=== PATIENT | male | born 1950 | race Caucasian/White ===

== ENCOUNTER 2017-02-19 15:35 | Emergency (ER) | payer MEDICAID, MEDICARE ==
[~2017-02-19] VITALS: Ht 170.2 cm; Wt 56.7 kg
[~2017-02-19 15:35] MED LIST: ALPR.5T; ALPR1T PO; ESCI10TA48 PO; ESCI5TAB; METH10TA2 PO; METHADONE PO; MULT-963 PO; QUET300T3 PO; SULF1TAB35 PO; TAPE100T PO; TAPE75TA PO; [UNRECOGNIZED DRUG - CODE] PO
--- NOTE | 2017-02-19 15:45 | ED Fall/Injury ---
General Stated Complaint: FALL Source: patient, EMS Exam Limitations: no limitations History of Present Illness Time seen by provider: 15:44 Initial Comments To ER per EMS from home with right hip pain. This began after a fall landing on the right hip 3 days ago. He's been unable to walk since then and has been crawling. History of right hip replacement 2 with [facility]. Occurred: other Severity: moderate Injuries/Pain Location: pelvis, lower extremity Context: slipped Allergies and Home Medications Allergies Coded Allergies: NKANo Known Allergies (Unverified Allergy, Mild, 02/21/09) Home Medications Alprazolam 1 Mg Tablet, 1 MG PO TID PRN for ANXIETY, (Reported) NEEDED FOR ANXIETY Methadone Hcl 10 Mg Tablet, 120 MG PO TID PRN for PAIN, (Reported) NEEDED FOR PAIN Multivitamin 1 Each Tablet, 1 TAB PO DAILY, (Reported) Quetiapine Fumarate 300 Mg Tab.sr.24h, 300 MG PO HS, (Reported) Sulfamethoxazole/Trimethoprim 1 Each Tablet, 1 EACH PO BID, #14 Prescribed by: JUAN F TORRES on 11/17/15 1527 Constitutional: see HPI Eyes: No Symptoms Reported Ears, Nose, Mouth, Throat: no symptoms reported Respiratory: no symptoms reported Cardiovascular: no symptoms reported Genitourinary: no symptoms reported Musculoskeletal: see HPI Skin: no symptoms reported Psychiatric/Neurological: No Symptoms Reported Past Dcfhivt-Jwosmn-Chkzzv Hx Immunizations Up To Date Tetanus Booster (TDap): Unknown PED Vaccines UTD: Yes Date of Influenza Vaccine: Oct 10, 2015 Seasonal Allergies Seasonal Allergies: No Surgeries HX Surgeries: Yes (Rt hip replaced 2014) Respiratory Hx Respiratory Disorders: Yes Respiratory Disorders: COPD Cardiovascular Hx Cardiac Disorders: No Neurological Hx Neurological Disorders: No Reproductive System Hx Reproductive Disorders: No Genitourinary Hx Genitourinary Disorders: No Genitourinary Disorders: Renal Failure Gastrointestinal Hx Gastrointestinal Disorders: No Gastrointestinal Disorders: Pancreatitis Musculoskeletal Hx Musculoskeletal Disorders: Yes (AVASCULAR NECROSIS, HIP REPLACEMENT WITH MULTIPLE DISLOCATIONS) Endocrine Hx Endocrine Disorders: No HEENT HX ENT Disorders: No Cancer Hx Cancer: No Psychosocial Hx Psychiatric Problems: Yes Behavioral Health Disorders: Anxiety Integumentary HX Skin/Integumentary Disorder: No Blood Transfusions Hx Blood Disorders: No Adverse Reaction to a Blood Tr: No Family Medical History Significant Family History: No Pertinent Family Hx Physical Exam Vital Signs Capillary Refill : General Appearance: WD/WN, no apparent distress HEENT: PERRL/EOMI, normal ENT inspection Neck: non-tender, full range of motion Respiratory: normal breath sounds, no respiratory distress, no accessory muscle use Gastrointestinal: normal bowel sounds, non tender, soft Extremities: other (pain to the right hip anteriorly and laterally.) Neurologic/Psychiatric: alert, normal mood/affect, oriented x 3 Skin: normal color, warm/dry Rylie Coma Score Best Eye Response: (4) Open Spontaneously Best Verbal Response: (5) Oriented Best Motor Response: (6) Obeys Commands Rylie Total: 15 Patient Education: Explained Benefits Breath Sounds per Auscultation: Clear Heart Sounds per Auscultation: Regular Airway Exam: Mouth opens >2 fingers, Neck Full Range of Motion, Visulation of Uvula Sedation Adminstration Time: 2034 Re-examination Time: 2099 Progress/Results/Core Measures Results/Orders My Orders Orders - JUAN F TORRES APRN Pelvis (02/19/17 15:43) Hip, Right, 2 Views (02/19/17 15:43) Cbc With Automated Diff (02/19/17 16:26) Ketorolac Injection (Toradol Injection) (02/19/17 16:45) Departure Communication Progress Notes I did discuss the case with Dr. Taveras who is on-call for orthopedics today. He recommends a walker and weightbearing as tolerated. Patient is early on methadone for pain control. Impression Impression: Primary Impression: Nondisplaced pubic rami fracture Disposition: 01 HOME, SELF-CARE Condition: Stable Departure-Patient Inst. Decision time for Depature: 16:26 Referrals: SANDHYA JARVIS MD (PCP/Family) Primary Care Physician Patient Instructions: Pelvic Fracture Add. Discharge Instructions: 1. Weightbearing as tolerated 2. Follow-up with your doctor later this week for recheck 3. JUAN F TORRES APRN Feb 19, 2017 15:45
--- NOTE | 2017-02-19 16:20 | Diagnostic Imaging Report ---
INDICATION: Right hip pain. FINDINGS: Two views of the right hip show postop changes from right hip arthroplasty. Prosthesis is in good position. Alignment is normal. There is no evidence of dislocation. There are fractures of the right superior and inferior ischiopubic rami which are new since 12/21/2014. IMPRESSION: Nondisplaced right ischiopubic rami fractures. Dictated by: Dictated on workstation # [id number]
--- NOTE | 2017-02-19 16:21 | Diagnostic Imaging Report ---
EXAMINATION: AP view of the pelvis. INDICATION: Fall. FINDINGS: There are mildly displaced fractures of the superior and inferior pubic rami on the right side. The right hip replacement appears to be in good position. The left hip demonstrates degenerative changes with prominent subchondral sclerosis in the left femoral head may relate to avascular necrosis. No subchondral collapse, however, is seen. The SI joints demonstrate prominent degenerative changes and suggestion of fused upper aspect of the joint on both sides. IMPRESSION: Mildly displaced fractures of the superior and inferior right pubic rami. Dictated by: Dictated on workstation # [id number]
[2017-02-19] MEDS ORDERED: KETOROLAC 60 MG/2 ML VIAL IM ONE (16:45)
[2017-02-19 18:28] VITALS: BP 102/72
== END 2017-02-19 17:02 | disposition home or self-care (01) ==
LOC: EDUNIT# 15:35 → ER 15:36
DX: S32.511A Fracture of superior rim of right pubis, initial encounter for closed fracture (principal); Z96.642 Presence of left artificial hip joint; R44.9 Unspecified symptoms and signs involving general sensations and perceptions; W19.XXXA Unspecified fall, initial encounter; Y99.8 Other external cause status
CPT/HCPCS: 72170; 73502; 99283

== ENCOUNTER 2017-07-16 16:06 | Emergency (ER) | payer MEDICARE ==
[~2017-07-16] VITALS: Ht 170.2 cm; Wt 59.0 kg
[2017-07-16 16:06] VITALS: BP 140/71
--- OUTSIDE RECORDS SUMMARY | 2017-07-16 16:10 | XMS REPORT | Clinical Summary ---
Author Author [facility] Organization [facility] Address Unknown Phone Unavailable Care Team Providers Care Gum Puller Name Role Phone PCP Unavailable Source Comments Some departments are not documenting in the electronic medical record. If you do not see the information that you expected, contact Release of Information in the Health Information Management department at [phone] for further assistance in locating additional records.[facility] Allergies No Known Allergies Current Medications Prescription Sig. Disp. Refills Start End Date Status Date methadone (DOLOPHINE; Take 120 mg by mouth Active METHADOSE) 10 mg tablet every 8 hours alendronate (FOSAMAX) 10 Take 70 mg by mouth daily Active mg tablet before breakfast. ALPRAZolam (XANAX) 1 mg Take 1 mg by mouth three Active tablet times daily. MULTIVITAMINS WITH Take 1 Tab by mouth Active FLUORIDE (MULTI-VITAMIN daily. PO) QUEtiapine (SEROQUEL) 300 Take 600 mg by mouth at Active mg tablet bedtime daily. 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 08/02/2013 Closed posterior dislocation of hip (HCC) Family History Medical History Relation Name Comments Bleeding Disorders Other Relation Name Status Comments Other Social History Tobacco Use Types Packs/Day Years Used Date Passive Smoke Exposure - 0.25 Never Smoker Smokeless Tobacco: Never Used Tobacco Cessation: Counseling Given: Yes Comments: Previously smoked 1PPD for years Alcohol Use Drinks/Week oz/Week Comments No Sex Assigned at Date Recorded Not on file Last Filed Vital Signs Vital Sign Reading Time Taken Blood Pressure 105/50 02/15/2014 6:33 AM CDT Pulse 81 02/15/2014 6:33 AM CDT Temperature 36.8 C (98.2 F) 02/15/2014 6:33 AM CDT Respiratory Rate - - Oxygen Saturation 97% 02/15/2014 6:33 AM CDT Inhaled Oxygen - - Concentration Weight 60.8 kg (134 lb) 02/09/2014 1:01 PM CDT Height 177.8 cm (5' 10") 02/09/2014 1:01 PM CDT Body Mass Index 19.23 02/09/2014 1:01 PM CDT Plan of Treatment Health Maintenance Due Date Last Done Comments HEPATITIS C SCREENING 1950 PHYSICAL (COMPREHENSIVE) 1957 EXAM PERTUSSIS VACCINE 1961 TETANUS VACCINE 1967 COLORECTAL CANCER 2000 SCREENING SHINGLES VACCINE 2010 PREVNAR/PNEUMOVAX (#1) 2015 INFLUENZA VACCINE 07/11/2017 Results Not on filefrom Last 3 Months
[2017-07-16] MEDS ORDERED: DIPH1TAB25 PO (16:26)
[2017-07-16] MEDS ORDERED: CITA20TA12 PO (16:27)
--- NOTE | 2017-07-16 16:36 | ED Psychosocial ---
General Chief Complaint: Overdose Stated Complaint: OVERDOSE Nursing Triage Note: ARRIVED VIA AMBULANCE FROM HOME PT STATES HE TOOK APPX 15 10MG TABS OF HIS METHADONE AND UNKNONWN AMOUNT OF XANAX. XANAX BOTTLE IS EMPTY AND IS MISSING ABOUT 1/2 BOTTLE THAT SHOULD BE THERE. STATES HE TOOK THE MEDICINE TO HELP HIM FIGURE THINGS OUT. AT THE TIME HE THOUGHT HE WANTED TO HARM HIMSELF ET NOW HE DOES NOT WANT TO HARM HIMSELF HE JUST WANTS SOMEONE TO TALK TO. Source: patient, EMS Exam Limitations: no limitations History of Present Illness Time seen by provider: 16:27 Initial Comments Patient presents to ER by EMS with a chief complaint that he felt poorly and tired today and wanted to rest because he had recently lost to cats one of which she had a witnessed diuretic and front of him in the street. This had them very distraught and upset and so he took his normal complement of 15 tablets of methadone as well as an unknown amount of Xanax he thinks is probably just a little more than what he typically takes in a day. He says he was not trying to harm or kill himself he just wanted to rest. He is adamant that he doesn't really want to be in the ER and that his skill carton repairer called the EMS when he noticed that the patient was very distraught. EMS reports that the patient said he took 15 tablets of methadone and did not know how much Xanax he took however the bottle written 3 weeks ago was about half empty. Patient denies previous suicide attempts and states she is not suicidal at this time nor does he wish to harm himself. He is very adamant that he does not want to be examined or have blood drawn that he only wants to sleep and go home and didn't want to be here in the first place. Patient states he gets his methadone from his primary care physician for his history of multiple joints with avascular necrosis, idiopathic. He is been on this medication for many years responsibly. He is not constipated and had a bowel movement yesterday which was regular and formed. Allergies and Home Medications Allergies Coded Allergies: NKANo Known Allergies (Unverified Allergy, Mild, 02/21/09) Home Medications Alprazolam 1 Mg Tablet, 1 MG PO QID PRN for ANXIETY, (Reported) NEEDED FOR ANXIETY Citalopram Hydrobromide 20 Mg Tablet, 20 MG PO DAILY, (Reported) Diphenoxylate HCl/Atropine 1 Each Tablet, 2 EACH PO TID, (Reported) Methadone Hcl 10 Mg Tablet, 50 MG PO TID PRN for PAIN, (Reported) NEEDED FOR PAIN Constitutional: No chills, No diaphoresis EENTM: No ear pain, No eye pain Respiratory: No cough, No wheezing Cardiovascular: No chest pain, No palpitations Gastrointestinal: No abdominal pain, No constipation, No diarrhea, No nausea, No vomiting Genitourinary: No discharge, No dysuria Musculoskeletal: see HPI, back pain, joint pain Skin: No pruritus, No rash Psychiatric/Neurological: Denies Headache, Denies Numbness, Denies Paresthesia Past Nhqkffn-Klxaiy-Jdidho Hx Patient Social History Alcohol Use: Denies Use Recreational Drug Use: No Smoking Status: Unknown if Ever Smoked Recent Foreign Travel: No Contact w/Someone Who Travel: No Recent Infectious Disease Expo: No Recent Hopitalizations: Yes (1994) Immunizations Up To Date Tetanus Booster (TDap): Unknown PED Vaccines UTD: Yes Date of Influenza Vaccine: Oct 10, 2015 Seasonal Allergies Seasonal Allergies: No Surgeries History of Surgeries: Yes (Rt hip replaced 1994, 2014) Respiratory History of Respiratory Disorde: Yes Respiratory Disorders: COPD Cardiovascular History of Cardiac Disorders: No Neurological History of Neurological Disord: No Reproductive System Hx Reproductive Disorders: No Genitourinary Genitourinary Disorders: Renal Failure Gastrointestinal History of Gastrointestinal Di: No Gastrointestinal Disorders: Pancreatitis Musculoskeletal History of Musculoskeletal Dis: Yes (AVASCULAR NECROSIS, HIP REPLACEMENT WITH MULTIPLE DISLOCATIONS) Endocrine History of Endocrine Disorders: No Cancer History of Cancer: No Psychosocial History of Psychiatric Problem: Yes Behavioral Health Disorders: Anxiety, Depression Integumentary History of Skin or Integumenta: No Blood Transfusions History of Blood Disorders: No Adverse Reaction to a Blood Tr: No Family Medical History Significant Family History: No Pertinent Family Hx Physical Exam Vital Signs Vital Sign - Last 12Hours 07/16/17 16:06 Temp 98.0 Pulse 46 Resp 18 B/P (MAP) 140/71 Pulse Ox 98 Capillary Refill : Less Than 3 Seconds General Appearance: no apparent distress, thin HEENT: PERRL/EOMI, pharynx normal, other (pupils 3 mm bilateral reactive) Neck: non-tender, supple, normal inspection Respiratory: lungs clear, normal breath sounds Cardiovascular: normal peripheral pulses, regular rate, rhythm, no edema Peripheral Pulses: 2+ Radial Pulses (R), 2+ Radial Pulses (L) Gastrointestinal: normal bowel sounds, non tender, soft, no organomegaly Extremities: normal range of motion, non-tender, normal inspection, normal capillary refill Neurologic/Psychiatric: alert, oriented x 3, depressed affect Appearance/Memory: appropriate insight, No neat, No denies illness Behavior/Eye Contact: cooperative, good eye contact, normal speech Thoughts/Hallucinations: normal thought pattern, no apparent hallucination, No delusions Skin: normal color, warm/dry Patient Education: Explained Benefits Breath Sounds per Auscultation: Clear Heart Sounds per Auscultation: Regular Airway Exam: Mouth opens >2 fingers, Neck Full Range of Motion, Visulation of Uvula Sedation Adminstration Time: 2034 Re-examination Time: 2099 Progress/Results/Core Measures Results/Orders Vital Signs/I&O Vital Sign - Last 12Hours 07/16/17 16:06 Temp 98.0 Pulse 46 Resp 18 B/P (MAP) 140/71 Pulse Ox 98 Blood Pressure Mean: 94 Progress Note : Time: 16:38 Progress Note Patient admits to only taking his normal daily, Namenda methadone and was left in his pill bottle would coincide with this being triggered. While he is a little deeper into his Xanax that he probably should be patient is not exhibiting any signs of sedation. He is adamant that he does not want to be here and that he just wants, rest. He is not made any overt signs or verbalizations of wanting to harm himself or kill himself. He has stated that if he goes home he will not take more of his medications kill himself or to even sleep rather he just wants to be left alone and get some rest and with this recent of a pet behind him. He is not willing to have any blood drawn because in the past he's been a very hard stick and he feels that this is going to be unnecessary pain. Although it be against my medical advice given his unknown quantity of Xanax and the possibility that he may have taken another medication and not told about it and don't feel obligated to hold him against his will. Other than physical examination he is refusing all other examination to include blood, x-ray, EKG. Departure Impression Impression: Primary Impression: Depressed affect Additional Impression: Encounter for long-term methadone use for opiate dependence Disposition: Condition: Against Medical Advice Departure-Patient Inst. Decision time for Depature: 17:19 Referrals: SANDHYA JARVIS MD (PCP/Family) Primary Care Physician Patient Instructions: ALCOHOL AND SUBSTANCE ABUSE Add. Discharge Instructions: Please make plans to follow-up with her primary care physician within the next week to review medication management and use. If you have worsening symptoms or side effects such as shortness of breath nausea or constipation you may return immediately to the ER or your primary care physician. If you have low thoughts or desires to harm herself or suicidal thoughts he should immediately call 911 or a close friend and get help. We are more than willing to see you again in the ER should he need our assistance. Please do not ignore your low mood but rather seek help from friends, family, clergy, your primary care physician. All discharge instructions reviewed with patient and/or family. Voiced understanding. Copy Copies To 1: SANDHYA JARVIS MD, TITUS J Jul 16, 2017 16:36
[2017-07-17] MEDS ORDERED: DEXT10TA PO (07:44)
[2017-07-17] MEDS ORDERED: PREG50CA2 PO (07:44)
[2017-07-17] MEDS ORDERED: ALEN70TA47 PO (09:56)
== END 2017-07-16 17:15 | disposition left against medical advice (07) ==
LOC: EDUNIT# 16:06 → ER 16:07
DX: T40.3X2A Poisoning by methadone, intentional self-harm, initial encounter (principal); T42.4X2A Poisoning by benzodiazepines, intentional self-harm, initial encounter; F32.9 Major depressive disorder, single episode, unspecified; F41.9 Anxiety disorder, unspecified; J44.9 Chronic obstructive pulmonary disease, unspecified; F11.20 Opioid dependence, uncomplicated; Z87.19 Personal history of other diseases of the digestive system; Z96.641 Presence of right artificial hip joint
CPT/HCPCS: 99283

== ENCOUNTER 2017-07-16 18:31 | Observation (INO) | payer MEDICARE ==
[~2017-07-16] VITALS: Ht 177.8 cm; Wt 55.4 kg
[~2017-07-16 18:31] MED LIST changes: +CITA20TA12 PO; +DIPH1TAB25 PO
--- OUTSIDE RECORDS SUMMARY | 2017-07-16 18:35 | XMS REPORT | Clinical Summary ---
Author Author [facility] Organization [facility] Address Unknown Phone Unavailable Care Team Providers Care Detonator Assembler Name Role Phone PCP Unavailable Source Comments Some departments are not documenting in the electronic medical record. If you do not see the information that you expected, contact Release of Information in the Health Information Management department at [phone] for further assistance in locating additional records.[facility] Allergies No Known Allergies Current Medications [...]
--- NOTE | 2017-07-16 20:04 | ED Psychosocial ---
General Chief Complaint: Psych/Social Disorder Stated Complaint: SUICIDAL IDEATIONS;OVERDOSE Nursing Triage Note: PT BROUGHT IN BY MIRANDAL YONIS WITH C/O SUICIDAL IDEATION. PT REPORTEDLY CALLED HIS SISTER TO TELL HER GOODBYE. HE STATES HE WAS WORKING ON AN "EXIT PLAN". PT SKIL WORKER REPORTS THE PT TOOK APROX 17 10MG METHADONE TABLETS AT AROUND 1800. PT WAS SEEN IN THIS ED AND LEFT AMA AT 1715 FOR SAME S/S. PT KEEPS STATING HE NEEDS TO GO. HE KEEPS TRYING TO STATE THAT HE IS NOT TRYING TO KILL HIMSELF. PT A&O X 4 AT THIS TIME. Source: patient Exam Limitations: no limitations History of Present Illness Time seen by provider: 19:15 Initial Comments Patient was here earlier and apparently went home AGAINST MEDICAL ADVICE after overtaking his methadone earlier today and an effort to go to sleep. Apparently when he got home he took 17 or 18 more of them before Skill worker was able to intervene. He then brought him back to the ER for further evaluation. Patient states that this was not a suicide attempt that he wanted just to go to sleep. All this apparently relates to the of his cat. See note earlier today for further description of that. Patient still denies suicidality but states that he was raising flags for mental health evaluation. He is open to that. He was very drowsy at home and remains drowsy here. He is maintaining his airway and talking and sitting up without difficulty. Patient is very concerned about IV and lab draw due to the pain from that. Patient is requesting DO NOT RESUSCITATE status. We did discuss that but I did let him know that we can't do DO NOT RESUSCITATE if it is a suicide attempt. Patient verbalize understanding. Timing/Duration: yesterday, getting worse Severity: moderate Associated Symptoms: anxiety, impaired concentration, ingestion Allergies and Home Medications Allergies Coded Allergies: NKANo Known Allergies (Unverified Allergy, Mild, 02/21/09) Home Medications Alprazolam 1 Mg Tablet, 1 MG PO QID PRN for ANXIETY, (Reported) NEEDED FOR ANXIETY Citalopram Hydrobromide 20 Mg Tablet, 20 MG PO DAILY, (Reported) Diphenoxylate HCl/Atropine 1 Each Tablet, 2 EACH PO TID, (Reported) Methadone Hcl 10 Mg Tablet, 50 MG PO TID PRN for PAIN, (Reported) NEEDED FOR PAIN Constitutional: see HPI, No chills, No fever EENTM: see HPI Respiratory: no symptoms reported Cardiovascular: no symptoms reported, No chest pain, No palpitations Gastrointestinal: No abdominal pain, No nausea, No vomiting Genitourinary: no symptoms reported Musculoskeletal: joint pain (chronic joint pain) Skin: no symptoms reported All Other Systems Reviewed Negative Unless Noted: Yes Past Utoprsb-Qbzbrb-Hzlsmf Hx Patient Social History Alcohol Use: Denies Use Recreational Drug Use: No Smoking Status: Current Everyday Smoker Type Used: Cigarettes 2nd Hand Smoke Exposure: Yes Recent Foreign Travel: No Contact w/Someone Who Travel: No Recent Infectious Disease Expo: No Recent Hopitalizations: No Immunizations Up To Date Tetanus Booster (TDap): Unknown PED Vaccines UTD: Yes Date of Influenza Vaccine: Oct 10, 2015 Seasonal Allergies Seasonal Allergies: No Surgeries History of Surgeries: Yes (Rt hip replaced 2014) Respiratory History of Respiratory Disorde: Yes Respiratory Disorders: COPD Cardiovascular History of Cardiac Disorders: No Neurological History of Neurological Disord: No Reproductive System Hx Reproductive Disorders: No Genitourinary Genitourinary Disorders: Renal Failure Gastrointestinal History of Gastrointestinal Di: No Gastrointestinal Disorders: Pancreatitis Musculoskeletal History of Musculoskeletal Dis: Yes (AVASCULAR NECROSIS, HIP REPLACEMENT WITH MULTIPLE DISLOCATIONS) Endocrine History of Endocrine Disorders: No Cancer History of Cancer: No Psychosocial History of Psychiatric Problem: Yes Behavioral Health Disorders: Anxiety, Depression Integumentary History of Skin or Integumenta: No Blood Transfusions History of Blood Disorders: No Adverse Reaction to a Blood Tr: No Reviewed Nursing Assessment Reviewed/Agree w Nursing PMH: Yes Family Medical History Significant Family History: No Pertinent Family Hx Physical Exam Vital Signs Vital Sign - Last 12Hours 07/16/17 18:35 Temp 98.1 Pulse 91 Resp 20 B/P (MAP) 129/82 Pulse Ox 96 O2 Delivery Room Air Capillary Refill : Less Than 3 Seconds General Appearance: WD/WN, no apparent distress HEENT: PERRL/EOMI, pharynx normal Neck: full range of motion, supple Respiratory: lungs clear, normal breath sounds Cardiovascular: regular rate, rhythm, no murmur Peripheral Pulses: 2+ Dorsalis Pedis (R), 2+ Left Dors-Pedis (L), 2+ Radial Pulses (R), 2+ Radial Pulses (L) Gastrointestinal: non tender, soft Extremities: non-tender, normal inspection Neurologic/Psychiatric: alert, oriented x 3 Appearance/Memory: denies illness, disheveled Behavior/Eye Contact: decreased rate of speech Thoughts/Hallucinations: normal thought pattern, no apparent hallucination Skin: normal color, warm/dry Patient Education: Explained Benefits Breath Sounds per Auscultation: Clear Heart Sounds per Auscultation: Regular Airway Exam: Mouth opens >2 fingers, Neck Full Range of Motion, Visulation of Uvula Sedation Adminstration Time: 2034 Re-examination Time: 2099 Progress/Results/Core Measures Results/Orders Lab Results Laboratory Tests Test 07/16/17 20:00 Range/Units White Blood Count 12.9 H 4.3-11.0 10^3/uL Red Blood Count 4.30 L 4.35-5.85 10^6/uL Hemoglobin 11.6 L 13.3-17.7 G/DL Hematocrit 37 L 40-54 % Mean Corpuscular Volume 87 80-99 FL Mean Corpuscular Hemoglobin 27 25-34 PG Mean Corpuscular Hemoglobin Concent 31 L 32-36 G/DL Red Cell Distribution Width 15.3 H 10.0-14.5 % Platelet Count 297 130-400 10^3/uL Mean Platelet Volume 9.0 7.4-10.4 FL Neutrophils (%) (Auto) 81 H 42-75 % Lymphocytes (%) (Auto) 10 L 12-44 % Monocytes (%) (Auto) 9 0-12 % Eosinophils (%) (Auto) 0 0-10 % Basophils (%) (Auto) 0 0-10 % Neutrophils # (Auto) 10.5 H 1.8-7.8 X 10^3 Lymphocytes # (Auto) 1.3 1.0-4.0 X 10^3 Monocytes # (Auto) 1.1 H 0.0-1.0 X 10^3 Eosinophils # (Auto) 0.0 0.0-0.3 10^3/uL Basophils # (Auto) 0.0 0.0-0.1 10^3/uL Sodium Level 135 135-145 MMOL/L Potassium Level 4.3 3.6-5.0 MMOL/L Chloride Level 101 98-107 MMOL/L Carbon Dioxide Level 22 21-32 MMOL/L Anion Gap 12 5-14 MMOL/L Blood Urea Nitrogen 21 H 7-18 MG/DL Creatinine 0.99 0.60-1.30 MG/DL Estimat Glomerular Filtration Rate > 60 BUN/Creatinine Ratio 21 Glucose Level 78 70-105 MG/DL Calcium Level 9.4 8.5-10.1 MG/DL Total Bilirubin 0.3 0.1-1.0 MG/DL Aspartate Amino Transf (AST/SGOT) 31 5-34 U/L Alanine Aminotransferase (ALT/SGPT) 17 0-55 U/L Alkaline Phosphatase 105 40-136 U/L Total Protein 7.9 6.4-8.2 GM/DL Albumin 3.6 3.2-4.5 GM/DL Salicylates Level < 5.0 L 5.0-20.0 MG/DL Acetaminophen Level < 10 L 10-30 UG/ML Serum Alcohol < 10 <10 MG/DL My Orders Orders - GITA GARCÍA MD Cbc With Automated Diff (07/16/17:25) Comprehensive Metabolic Panel (07/16/17:) Drug Screen Stat (Urine) (07/16/17:25) Ua Culture If Indicated (07/16/17:25) Ekg Tracing (07/16/17:25) Acetaminophen (07/16/17 19:25) Alcohol (07/16/17:25) Salicylate (07/16/17 19:25) Saline Lock/Iv-Start (07/16/17:25) Vital Signs/I&O Vital Sign - Last 12Hours 07/16/17 18:35 Temp 98.1 Pulse 91 Resp 20 B/P (MAP) 129/82 Pulse Ox 96 O2 Delivery Room Air Blood Pressure Mean: 98 Progress Note : Progress Note Seen and evaluated. After long discussion, patient agreed to IV and labs as well as EKG. He understands that he will require admission due to the overdose of methadone. Patient is drowsy. He is maintaining his oxygen saturation on room air. I did discuss the case with Dr. Milton, on-call hospitalist at 2037. She accepts patient for admission, observation status. Patient will go to ICU due to overdose of methadone. Patient agrees to plan. ECG Initial ECG Impression Date: Jul 16, 2017 Initial ECG Impression Time: 20:10 Initial ECG Rate: 78 Initial ECG Rhythm: Normal Sinus Initial ECG Impression: Normal Comment Sinus rhythm with normal axis. No evidence of ST elevation [place]. No previous available for comparison. Interpreted by me. Departure Communication (Admissions) Time/Spoke to Admitting Phy: 20:38 Impression Impression: Primary Impression: Methadone overdose Qualified Codes: T40.3X4A - Poisoning by methadone, undetermined, initial encounter Disposition: ADMITTED INPATIENT Condition: Stable Admissions Decision to Admit Reason: Admit from ER (General) Decision to Admit/Date: Jul 16, 2017 Time/Decision to Admit Time: 20:38 Departure-Patient Inst. Referrals: SANDHYA JARVIS MD (PCP/Family) Primary Care Physician Copy Copies To 1: SANDHYA JARVIS MD, TIMOTHY D MD Jul 16, 2017 20:04
[2017-07-16 20:11] LABS: BASOPHILS % (AUTO) 0 % (0-10); EOSINOPHILS % (AUTO) 0 % (0-10); LYMPHOCYTES # (AUTO) 1.3 X 10^3 (1.0-4.0); LYMPHOCYTES % (AUTO) 10 % (12-44); MEAN CORPUSCULAR HEMOGLOBIN 27 PG (25-34); MEAN CORPUSCULAR HGB CONC 31 G/DL (32-36); MEAN CORPUSCULAR VOLUME 87 FL (80-99); MONOCYTES # (AUTO) 1.1 X 10^3 (0.0-1.0); MONOCYTES % (AUTO) 9 % (0-12); NEUTROPHILS # (AUTO) 10.5 X 10^3 (1.8-7.8); NEUTROPHILS % (AUTO) 81 % (42-75); PLATELET COUNT 297 10^3/uL (130-400); RED CELL DISTRIBUTION WIDTH 15.3 % (10.0-14.5); WHITE BLOOD COUNT 12.9 10^3/uL (4.3-11.0)
[2017-07-16 20:29] LABS: ALANINE AMINOTRANSFERASE 17 U/L (0-55); ALBUMIN 3.6 GM/DL (3.2-4.5); ALCOHOL < 10 MG/DL (<10); ANION GAP 12 MMOL/L (5-14); ASPARTATE AMINO TRANSFERASE 31 U/L (5-34); BILIRUBIN,TOTAL 0.3 MG/DL (0.1-1.0); BLOOD UREA NITROGEN 21 MG/DL (7-18); BUN/CREATININE RATIO 21; CALCIUM 9.4 MG/DL (8.5-10.1); CARBON DIOXIDE 22 MMOL/L (21-32); CHLORIDE 101 MMOL/L (98-107); CREATININE SERUM 0.99 MG/DL (0.60-1.30); GFR ESTIMATED > 60; GLUCOSE 78 MG/DL (70-105); POTASSIUM 4.3 MMOL/L (3.6-5.0); SALICYLATE < 5.0 MG/DL (5.0-20.0); SODIUM 135 MMOL/L (135-145); TOTAL PROTEIN 7.9 GM/DL (6.4-8.2)
[2017-07-16 20:30] LABS: ACETAMINOPHEN < 10 UG/ML (10-30)
--- OUTSIDE RECORDS SUMMARY | 2017-07-16 20:57 | XMS REPORT | Clinical Summary ---
Author Author [facility] Organization [facility] Address Unknown Phone Unavailable Care Team Providers Care Roof Technician Name Role Phone PCP Unavailable Source Comments Some departments are not documenting in the electronic medical record. If you do not see the information that you expected, contact Release of Information in the Health Information Management department at [phone] for further assistance in locating additional records.[facility] Allergies No Known Allergies Current Medications [...]
[2017-07-16] MEDS ORDERED: ONDANSETRON 4 MG/2 ML (SDV) Z0FRAN IV PRN (22:45)
[2017-07-16] MEDS ORDERED: CATHETER FLUSH 10 ML SYR IV PRN (22:45)
[2017-07-16] MEDS: NS IV 1000 ML 1,000 ML IV SCH (23:05)
[2017-07-16] MEDS: CATHETER FLUSH 10 ML SYR IV SCH (23:05)
[2017-07-16 23:30] VITALS: BP 149/63
[2017-07-17] VITALS (24 sets, daily range): BP systolic 100–148; BP diastolic 60–102
[2017-07-17 01:01] LABS: BILIRUBIN,URINE NEGATIVE (NEGATIVE); KETONES,URINE NEGATIVE (NEGATIVE); LEUKOCYTE ESTERASE ,URINE 1+ (NEGATIVE); NITRITE,URINE NEGATIVE (NEGATIVE); PH,URINE 6.5 (5-9); PROTEIN,URINE 1+ (NEGATIVE); UROBILINOGEN,URINE NORMAL (NORMAL)
[2017-07-17 01:18] LABS: SQUAMOUS EPITHELIAL CELL,UR 0-2 /HPF
[2017-07-17 05:04] LABS: BASOPHILS % (AUTO) 0 % (0-10); EOSINOPHILS % (AUTO) 0 % (0-10); LYMPHOCYTES # (AUTO) 1.5 X 10^3 (1.0-4.0); LYMPHOCYTES % (AUTO) 12 % (12-44); MEAN CORPUSCULAR HEMOGLOBIN 27 PG (25-34); MEAN CORPUSCULAR HGB CONC 31 G/DL (32-36); MEAN CORPUSCULAR VOLUME 87 FL (80-99); MEAN PLATELET VOLUME 9.5 FL (7.4-10.4); MONOCYTES # (AUTO) 1.2 X 10^3 (0.0-1.0); MONOCYTES % (AUTO) 10 % (0-12); NEUTROPHILS # (AUTO) 10.1 X 10^3 (1.8-7.8); NEUTROPHILS % (AUTO) 78 % (42-75); PLATELET COUNT 293 10^3/uL (130-400); RED BLOOD COUNT 4.52 10^6/uL (4.35-5.85); RED CELL DISTRIBUTION WIDTH 15.2 % (10.0-14.5); WHITE BLOOD COUNT 12.9 10^3/uL (4.3-11.0)
[2017-07-17 05:22] LABS: ANION GAP 10 MMOL/L (5-14); BLOOD UREA NITROGEN 22 MG/DL (7-18); BUN/CREATININE RATIO 26; CALCIUM 9.2 MG/DL (8.5-10.1); CARBON DIOXIDE 23 MMOL/L (21-32); CHLORIDE 103 MMOL/L (98-107); CREATININE SERUM 0.85 MG/DL (0.60-1.30); GFR ESTIMATED > 60; MAGNESIUM 2.1 MG/DL (1.8-2.4); PHOSPHORUS 2.6 MG/DL (2.3-4.7); POTASSIUM 4.2 MMOL/L (3.6-5.0); SODIUM 136 MMOL/L (135-145)
[2017-07-17 05:27] LABS: GLUCOSE 56 MG/DL (70-105)
[2017-07-17] MEDS ORDERED: DEXTROSE 50% 50 ML (IMS) SYR ONE (05:53)
[2017-07-17] MEDS ORDERED: DEXTROSE 50% INJ VIAL IV ONE (06:45)
[2017-07-17] MEDS ORDERED: PREG50CA2 PO (07:44)
[2017-07-17] MEDS ORDERED: DEXT10TA PO (07:44)
[2017-07-17] MEDS: POTASSIUM CL 10MEQ/50ML IVPB 50 ML IV SCH (07:46)
[2017-07-17] MEDS: KCL 20 MEQ TAB (K-DUR) PO SCH (07:46)
[2017-07-17] MEDS: MAGNESIUM 1 GM/100 ML IVPB 100 ML IV SCH ×2 (07:46→12:23)
--- NOTE | 2017-07-17 07:53 | Diagnostic Imaging Report ---
EXAM: CHEST 1 VIEW, AP/PA ONLY INDICATION: Overdose. COMPARISON: Chest radiograph 06/24/2009. FINDINGS: Normal heart size and pulmonary vascularity. Atelectasis and/or scarring in the right lung base is new since the prior exam. Mild peripheral consolidation in the right lung apex is also new. No pleural effusion or pneumothorax. No acute osseous findings. IMPRESSION: 1. New consolidation in the right lung apex laterally is new since the prior exam. 2. Mild atelectasis or scarring in the right lung base is also new. Dictated by: Dictated on workstation # [id number]
[2017-07-17] MEDS ORDERED: ALEN70TA47 PO (09:56)
--- NOTE | 2017-07-17 10:07 | Short Stay Summary-Hospitalist ---
HPI History of Present Illness: HPI/Chief Complaint CC: Drowsiness HPI: Pt. is a 66yoCM who presented to the ER for drowsiness as reported by his SKIL worker. He was seen in the ED for potential overdose/suicidal ideation and he ended up leaving AMA. He returned to the ER after his SKIL worker thought that he seemed drowsy. This morning he reports he does not remember the events of yesterday and does not remember waking up or even being in the ER. He was able to tell me details of his medical history though (regarding his AVN and hip replacements). Per record review he took roughly 3-4 days of his Xanan rx prior to the first visit and then took 17-18 10mg Methadone after returning home from the second ER visit. He is unable to confirm this. It appears he also called his family to say goodbye. He currently denies any Suicidal Ideation or previous suicide attempts. When asked specifically if this was a suicide attempt he did not answer. Date Seen 07/17/17 Attending Physician Allie Milton Rick D MD Referring Physician Date of Admission Jul 16, 2017 at 20:53 Home Medications & Allergies Home Medications Reviewed patient Home Medication Reconciliation Form Allergies Allergies Coded Allergies NKANo Known Allergies (Unverified Allergy, Mild, 02/21/09) Past Nvnckyu-Floepp-Dwfaki Hx Patient Social History Alcohol Use: Denies Use Recreational Drug Use: No Smoking Status: Former Smoker Former Smoker, Quit: Jul 14, 2017 Type Used: Cigarettes 2nd Hand Smoke Exposure: Yes Physical Abuse Screen: No Sexual Abuse: No Recent Foreign Travel: No Contact w/other who traveled: No Recent Hopitalizations: No Recent Infectious Disease Expo: No Immunizations Up To Date Tetanus Booster (TDap): Unknown Pediatric: Yes Date of Influenza Vaccine: Oct 10, 2015 Seasonal Allergies Seasonal Allergies: No Surgeries Yes (Rt hip replaced 2014) Respiratory Yes (QUIT SMOKING A FEW DAYS AGO) Currently Using CPAP: No Currently Using BIPAP: No Cardiovascular No Neurological No Reproductive System Hx Reproductive Disorders: No Genitourinary Yes Renal Failure Gastrointestinal No Pancreatitis Musculoskeletal Yes (AVASCULAR NECROSIS, HIP REPLACEMENT WITH MULTIPLE DISLOCATIONS) Arthritis Endocrine History of Endocrine Disorders: No HEENT History of HEENT Disorders: No Loss of Vision: Denies Hearing Impairment: Denies Cancer No Psychosocial History of Psychiatric Problem: Yes Behavioral Health Disorders: Anxiety, Depression Integumentary History of Skin or Integumenta: No Blood Transfusions History of Blood Disorders: No Adverse Reaction to a Blood Tr: No Reviewed Nursing Assessment Reviewed/Agree w Nursing PMH: Yes Family Medical History Significant Family History: No Pertinent Family Hx Physical Exam Physical Exam Vital Signs Vital Sign - Last 12Hours 07/16/17 18:35 Temp 98.1 Pulse 91 Resp 20 B/P (MAP) 129/82 Pulse Ox 96 O2 Delivery Room Air Capillary Refill : Less Than 3 Seconds Results Results/Procedures Lab Laboratory Tests 07/16/17 20:00 07/17/17 04:36 Clinical Quality Measures DVT/VTE Risk/Contraindication: Risk Factor Score Per Nursin RFS Level Per Nursing on Admit: 4+=Very High JEN ONEILL MD Jul 17, 2017 10:07
[2017-07-17] MEDS: ALPRAZolam 1 MG (XANAX) TAB PO PRN ×2 (11:54→18:05)
[2017-07-17] MEDS: NS IV 1000 ML 1,000 ML IV SCH (11:54)
--- NOTE | 2017-07-17 16:48 | History & Physical-Hospitalist ---
HPI History of Present Illness: HPI/Chief Complaint CC: Drowsiness HPI: Pt. is a 66yoCM who presented to the ER for drowsiness as reported by his SKIL worker. He was seen in the ED for potential overdose/suicidal ideation and he ended up leaving AMA. He returned to the ER after his SKIL worker thought that he seemed drowsy. This morning he reports he does not remember the events of yesterday and does not remember waking up or even being in the ER. He was able to tell me details of his medical history though (regarding his AVN and hip replacements). Per record review he took roughly 3-4 days of his Xanan rx prior to the first visit and then took 17-18 10mg Methadone after returning home from the second ER visit. He is unable to confirm this. It appears he also called his family to say goodbye. He currently denies any Suicidal Ideation or previous suicide attempts. When asked specifically if this was a suicide attempt he did not answer. Source: patient, RN/MD, RN notes reviewed Exam Limitations: clinical condition Date Seen 07/17/17 Time Seen by Provider: 07:30 Attending Physician Allie Milton DO PCP Mike Valencia MD Referring Physician Date of Admission Jul 16, 2017 at 20:53 Home Medications & Allergies Home Medications Reviewed patient Home Medication Reconciliation Form Allergies Allergies Coded Allergies NKANo Known Allergies (Unverified Allergy, Mild, 02/21/09) Past Edfpaag-Evtyis-Ncgyas Hx Patient Social History Alcohol Use: Denies Use Recreational Drug Use: No Smoking Status: Former Smoker Former Smoker, Quit: Jul 14, 2017 Type Used: Cigarettes 2nd Hand Smoke Exposure: Yes Physical Abuse Screen: No Sexual Abuse: No Recent Foreign Travel: No Contact w/other who traveled: No Recent Hopitalizations: No Recent Infectious Disease Expo: No Immunizations Up To Date Tetanus Booster (TDap): Unknown Pediatric: Yes Date of Influenza Vaccine: Oct 10, 2015 Seasonal Allergies Seasonal Allergies: No Surgeries Yes (Rt hip replaced 2014) Respiratory Yes (QUIT SMOKING A FEW DAYS AGO) Currently Using CPAP: No Currently Using BIPAP: No Cardiovascular No Neurological No Reproductive System Hx Reproductive Disorders: No Genitourinary Yes Renal Failure Gastrointestinal No Pancreatitis Musculoskeletal Yes (AVASCULAR NECROSIS, HIP REPLACEMENT WITH MULTIPLE DISLOCATIONS) Arthritis Endocrine History of Endocrine Disorders: No HEENT History of HEENT Disorders: No Loss of Vision: Denies Hearing Impairment: Denies Cancer No Psychosocial History of Psychiatric Problem: Yes Behavioral Health Disorders: ADD/ADHD, Anxiety, Depression Integumentary History of Skin or Integumenta: No Blood Transfusions History of Blood Disorders: No Adverse Reaction to a Blood Tr: No Reviewed Nursing Assessment Reviewed/Agree w Nursing PMH: Yes Family Medical History Significant Family History: No Pertinent Family Hx Review of Systems Constitutional: No chills, No fever EENTM: No blurred vision, No double vision Respiratory: No cough, No short of breath Cardiovascular: No chest pain, No edema, No palpitations Gastrointestinal: No abdominal pain, No constipation, No nausea, No vomiting Genitourinary: No dysuria, No frequency Musculoskeletal: back pain, joint pain Skin: No lesions, No rash Psychiatric/Neurological: Denies Depressed, Denies Headache Physical Exam Physical Exam Vital Signs Vital Sign - Last 12Hours 07/16/17 18:35 Temp 98.1 Pulse 91 Resp 20 B/P (MAP) 129/82 Pulse Ox 96 O2 Delivery Room Air Capillary Refill : Less Than 3 Seconds General Appearance: No Apparent Distress, Thin HEENT: PERRL/EOMI, No Scleral Icterus (L), No Scleral Icterus (R) Neck: Non Tender, Supple Respiratory: Lungs Clear, Normal Breath Sounds, No Accessory Muscle Use, No Respiratory Distress Cardiovascular: Regular Rate, Rhythm, No Edema, No JVD, No Murmur Gastrointestinal: Normal Bowel Sounds, Non Tender, Soft Extremity: Non Tender, No Calf Tenderness, No Pedal Edema Neurologic/Psychiatric: Alert, No Motor/Sensory Deficits, Other (oriented to self and place, not to situation; very flat affect) Skin: Normal Color, Warm/Dry Results Results/Procedures Lab Laboratory Tests 07/16/17 20:00 07/17/17 04:36 Assessment/Plan Admission Diagnosis Intentional Overdose Diagnosis/Problems Diagnosis/Problems (1) Methadone overdose Status: Acute Assessment & Plan: Discussed with poison control and recommended monitoring for at least 8 hours but that could half prolonged half life with increased doses (up to 55hours) Did not need Narcan and has been protecting his airway since arrival, satting well on room air [facility] contacted and evaluated- reportedly does not need inpatient psych and denying suicidal ideation at this time Flat affect but mood appears mildly improved this afternoon compared to this morning when I saw him Qualifiers: Qualified Codes: T40.3X4A - Poisoning by methadone, undetermined, initial encounter (2) Prolonged QT interval Status: Acute Assessment & Plan: New, has developed since last night QTc in ER and now 507 despite treated with magnesium Will continue to monitor in tele Will monitor with serial EKGs per poison control recommendations (3) Depressed affect Status: Chronic Assessment & Plan: Will continue on Celexa Very flat affect and difficult to ascertain mood but appears somewhat depressed (4) Prophylactic measure Assessment & Plan: SCDs Saline lock No indication for GI ppx Regular Diet Clinical Quality Measures DVT/VTE Risk/Contraindication: Risk Factor Score Per Nursin RFS Level Per Nursing on Admit: 4+=Very High JEN ONEILL MD Jul 17, 2017 16:48
[2017-07-17 20:23] LABS: ANION GAP 12 MMOL/L (5-14); BLOOD UREA NITROGEN 22 MG/DL (7-18); BUN/CREATININE RATIO 24; CALCIUM 8.4 MG/DL (8.5-10.1); CARBON DIOXIDE 21 MMOL/L (21-32); CHLORIDE 102 MMOL/L (98-107); GFR ESTIMATED > 60; GLUCOSE 94 MG/DL (70-105); MAGNESIUM 2.5 MG/DL (1.8-2.4); POTASSIUM 3.9 MMOL/L (3.6-5.0); SODIUM 135 MMOL/L (135-145)
[2017-07-17] MEDS: CATHETER FLUSH 10 ML SYR IV SCH (22:00)
[2017-07-18] VITALS (9 sets, daily range): BP systolic 124–148; BP diastolic 65–85
[2017-07-18] MEDS: ALPRAZolam 1 MG (XANAX) TAB PO PRN ×3 (00:07→14:02)
[2017-07-18] MEDS: NS IV 1000 ML 1,000 ML IV SCH ×2 (03:46→14:16)
[2017-07-18] MEDS: CATHETER FLUSH 10 ML SYR IV SCH ×2 (06:00→14:00)
[2017-07-18 08:18] LABS: BASOPHILS % (AUTO) 0 % (0-10); EOSINOPHILS # (AUTO) 0.1 10^3/uL (0.0-0.3); EOSINOPHILS % (AUTO) 1 % (0-10); LYMPHOCYTES # (AUTO) 2.1 X 10^3 (1.0-4.0); LYMPHOCYTES % (AUTO) 17 % (12-44); MEAN CORPUSCULAR HEMOGLOBIN 27 PG (25-34); MEAN CORPUSCULAR HGB CONC 31 G/DL (32-36); MEAN CORPUSCULAR VOLUME 87 FL (80-99); MEAN PLATELET VOLUME 9.4 FL (7.4-10.4); MONOCYTES # (AUTO) 1.6 X 10^3 (0.0-1.0); MONOCYTES % (AUTO) 12 % (0-12); NEUTROPHILS # (AUTO) 9.1 X 10^3 (1.8-7.8); NEUTROPHILS % (AUTO) 70 % (42-75); PLATELET COUNT 279 10^3/uL (130-400); RED BLOOD COUNT 4.95 10^6/uL (4.35-5.85); RED CELL DISTRIBUTION WIDTH 15.5 % (10.0-14.5)
[2017-07-18 08:36] LABS: ANION GAP 12 MMOL/L (5-14); BLOOD UREA NITROGEN 19 MG/DL (7-18); BUN/CREATININE RATIO 20; CALCIUM 9.3 MG/DL (8.5-10.1); CARBON DIOXIDE 19 MMOL/L (21-32); CHLORIDE 105 MMOL/L (98-107); CREATININE SERUM 0.95 MG/DL (0.60-1.30); GFR ESTIMATED > 60; GLUCOSE 65 MG/DL (70-105); MAGNESIUM 2.3 MG/DL (1.8-2.4); PHOSPHORUS 2.2 MG/DL (2.3-4.7); SODIUM 136 MMOL/L (135-145)
--- NOTE | 2017-07-18 09:12 | Discharge Summary-Hospitalist ---
Diagnosis/Chief Complaint Date of Admission Jul 16, 2017 at 20:53 Date of Discharge Discharge Date: Jul 18, 2017 Admission Diagnosis Methadone Overdose Discharge Diagnosis Methadone Overdose (1) Methadone overdose Status: Acute Assessment & Plan: Discussed with poison control and recommended monitoring for at least 8 hours and to monitor on telemetry with serial EKG for QTc prolongation Did not need Narcan and has been protecting his airway since arrival, satting well on room air [facility] contacted and evaluated- reportedly does not need inpatient psych and denying suicidal ideation at this time They will arrange to have an in person welfare check done for the next three days Will have also discussed case with his SK[employer] worker who will check on him daily in person and set up his med box so what is available to him is only daily dose of medication Patient much more awake and alert today then yesterday and adamantly denies any thought of suicide or self harm (2) Prolonged QT interval Status: Acute Assessment & Plan: Worsened yesterday but has since improved today with no further treatment with magnesium Monitored on telemetry overnight (3) Depressed affect Status: Chronic Assessment & Plan: Will continue on Celexa Affect less flat today, worried about his cats (4) Prophylactic measure Assessment & Plan: SCDs Saline lock No indication for GI ppx Regular Diet Discharge Summary Discharge Physical Examination Allergies: Coded Allergies: NKANo Known Allergies (Unverified Allergy, Mild, 02/21/09) Vitals & I&Os Vital Signs Date Time Temp Pulse Resp B/P (MAP) Pulse Ox O2 Delivery O2 Flow Rate FiO2 07/18/17 12:00 98.9 64 20 124/65 98 Room Air Hospital Course Pt. presented to the ER for drowsiness. He was found by his SK[employer] worker to be more drowsy after taking 17-18 tabs of 10mg methadone (normal daily dose is 15 tabs of 10mg) with unknown intention. He has protected his airway the entire duration of his hospital stay. Case was discussed with poison control who recommended monitoring of EKG to evaluation his QTc. He did develop a prolonged QTc yesterday which was treated with Magnesium. This has since resolved with no further treatment. He is more alert and awake today and denies any SI or thoughts of self harm, states he made a mistake. He has no history of suicide attempts. At discharge patient completely alert and oriented x4. [facility] evaluated him and feels he is not at high risk for self harm and does not meet inpatient criteria. We have arranged for his SKIL worker to assist with medication set up daily and [facility] will do in person welfare checks for the next three days. If thoughts of self harm do arise I recommended he call immediately for help. Labs (last 24 hrs) Laboratory Tests 07/17/17 19:37: Sodium Level 135, Potassium Level 3.9, Chloride Level 102, Carbon Dioxide Level 21, Anion Gap 12, Blood Urea Nitrogen 22H, Creatinine 0.90, Estimat Glomerular Filtration Rate > 60, BUN/Creatinine Ratio 24, Glucose Level 94, Calcium Level 8.4L, Magnesium Level 2.5H 07/18/17 07:28: Glucometer 80 07/18/17 07:59: Sodium Level 136, Potassium Level 4.0, Chloride Level 105, Carbon Dioxide Level 19L, Anion Gap 12, Blood Urea Nitrogen 19H, Creatinine 0.95, Estimat Glomerular Filtration Rate > 60, BUN/Creatinine Ratio 20, Glucose Level 65L, Calcium Level 9.3, Magnesium Level 2.3, White Blood Count 13.0H, Red Blood Count 4.95, Hemoglobin 13.4, Hematocrit 43, Mean Corpuscular Volume 87, Mean Corpuscular Hemoglobin 27, Mean Corpuscular Hemoglobin Concent 31L, Red Cell Distribution Width 15.5H, Platelet Count 279, Mean Platelet Volume 9.4, Neutrophils (%) (Auto ) 70, Lymphocytes (%) (Auto) 17, Monocytes (%) (Auto) 12, Eosinophils (%) (Auto ) 1, Basophils (%) (Auto) 0, Neutrophils # (Auto) 9.1H, Lymphocytes # (Auto) 2.1 , Monocytes # (Auto) 1.6H, Eosinophils # (Auto) 0.1, Basophils # (Auto) 0.0, Phosphorus Level 2.2L Pending Labs Laboratory Tests 07/18/17 07:28: Glucometer 80 07/18/17 07:59: White Blood Count 13.0, Red Blood Count 4.95, Hemoglobin 13.4, Hematocrit 43, Mean Corpuscular Volume 87, Mean Corpuscular Hemoglobin 27, Mean Corpuscular Hemoglobin Concent 31, Red Cell Distribution Width 15.5, Platelet Count 279, Mean Platelet Volume 9.4, Neutrophils (%) (Auto) 70, Lymphocytes (%) (Auto) 17, Monocytes (%) (Auto) 12, Eosinophils (%) (Auto) 1, Basophils (%) (Auto) 0, Neutrophils # (Auto) 9.1, Lymphocytes # (Auto) 2.1, Monocytes # (Auto) 1.6, Eosinophils # (Auto) 0.1, Basophils # (Auto) 0.0, Sodium Level 136, Potassium Level 4.0, Chloride Level 105, Carbon Dioxide Level 19, Anion Gap 12, Blood Urea Nitrogen 19, Creatinine 0.95, Estimat Glomerular Filtration Rate > 60, BUN/ Creatinine Ratio 20, Glucose Level 65, Calcium Level 9.3, Phosphorus Level 2.2, Magnesium Level 2.3 Discussion & Recommendations Should follow up with his PCP Dr. Valencia next week. Discharge Home Medications: Active Scripts Active Reported Alendronate Sodium 70 Mg Tablet 70 Mg PO SA LAST FILLED #5 05-27-17 Lyrica (Pregabalin) 50 Mg Capsule 50 Mg PO BID Dextroamphetamine Sulfate 10 Mg Tablet 30 Mg PO DAILY LAST FILLED #90 05-27-17 Celexa (Citalopram Hydrobromide) 20 Mg Tablet 20 Mg PO DAILY Diphenoxylate-Atrop 2.5-0.025 (Diphenoxylate HCl/Atropine) 1 Each Tablet 2 Tab PO TID PRN Xanax (Alprazolam) 1 Mg Tablet 1 Mg PO QID PRN Methadone Hcl 10 Mg Tablet 50 Mg PO TID LAST FILLED #450 05-27-17 TAKES 5 (10MG) TABLETS Condition at discharge Stable, improved Instructions to patient/family Please see electronic discharge instructions given to patient. Clinical Quality Measures DVT/VTE Risk/Contraindication: Risk Factor Score Per Nursin RFS Level Per Nursing on Admit: 4+=Very High Copy Copies To 1: SANDHYA VALENCIA MD Problem Qualifiers (1) Methadone overdose: Encounter type: initial encounter Injury intent: undetermined intent Qualified Codes: T40.3X4A - Poisoning by methadone, undetermined, initial encounter JEN ONEILL MD Jul 18, 2017 09:12
[2017-07-18] MEDS: MAGNESIUM 1 GM/100 ML IVPB 100 ML IV SCH (09:27)
[2017-07-18] MEDS: POTASSIUM CL 10MEQ/50ML IVPB 50 ML IV SCH (09:27)
[2017-07-18] MEDS: KCL 20 MEQ TAB (K-DUR) PO SCH (09:28)
--- NOTE | 2017-07-18 09:34 | Diagnostic Imaging Report ---
INDICATION: Dyspnea. Frontal chest obtained at 5:03 a.m. and compared with 07/17/17. FINDINGS: The heart is normal in size. Mediastinal silhouette is unremarkable. The lungs show chronic appearing increased interstitial markings. There is a focal area of mild infiltrate in the right upper lobe above the minor fissure. There is some minimal infiltrate in the right lateral base. IMPRESSION: Focal infiltrates in the right upper lobe and right base are similar to yesterday. Chronic appearing increased interstitial markings are noted. There is no pneumothorax or pleural fluid. Dictated by: Dictated on workstation # [id number]
== END 2017-07-18 09:23 | disposition home or self-care (01) ==
LOC: EDUNIT# 18:31 → ER 18:32 → ICU 20:53 → UNDOADMOB 20:53 → ICU 21:41 → 4TH 07-18 09:20 → ICU 07-18 09:20
PROVIDERS: ADMIT Internal Medicine; ATTEND Internal Medicine
DX: T40.3X4A Poisoning by methadone, undetermined, initial encounter (principal); R40.0 Somnolence; F32.9 Major depressive disorder, single episode, unspecified; J44.9 Chronic obstructive pulmonary disease, unspecified; F17.210 Nicotine dependence, cigarettes, uncomplicated; Z79.899 Other long term (current) drug therapy; Z96.641 Presence of right artificial hip joint
CPT/HCPCS: 36415; 71010; 80048; 80053; 80306; 80320; 80329; 81000; 82962; 83735; 84100; 85025; 87081; 93005; G0378

== ENCOUNTER 2017-07-24 19:14 | Emergency (ER) | payer MEDICARE ==
[~2017-07-24] VITALS: Ht 177.8 cm; Wt 54.4 kg
[~2017-07-24 19:14] MED LIST changes: +ALEN70TA47 PO; +DEXT10TA PO; +PREG50CA2 PO
--- NOTE | 2017-07-24 19:40 | ED General ---
General Chief Complaint: General Problems/Pain Stated Complaint: WITHDRAWL Nursing Triage Note: pt reports increased anxiety, tremors, generalized weakness starting today. Nursing Sepsis Screen: No Definite Risk Source of Information: Patient, EMS Exam Limitations: No Limitations History of Present Illness Time Seen by Provider: 19:29 Initial Comments Patient presents to ER by EMS with a chief complaint that he feels a little off like he is withdrawing from his opiates. He has some weird tingling sensation in his right arm for the past day. He denies any cardiac history. He denies chest pain, shortness of breath, nausea, vomiting. He says he felt a little weak today starting about this afternoon. EMS reports when they arrived he told them he was too weak to get up out of his chair so they had to go into a screen window and when they got in the house he was able to get up and ambulate onto the gurney under his own power. The patient states she really just wants someone to talk to the family denies any desire to harm himself or others area and he denies suicidal ideation. He is recently had a stay inpatient psychiatric for suicidal ideation and attempt by overdose of his methadone. He' s been on the methadone for many years and was not able to give any reason why he is was initiated on the methadone. He denies alcohol intake and only occasional tobacco use. He denies recreational drug use. He says he just felt a little lonely like he wanted to talk some but today so he called the ambulance' s if he couldn't be brought in to talk to someone. He is not in counseling. He is not dyspneic many social setting such as group activities, muslim, Narcotics Anonymous. He is very upset that since getting out of inpatient psychiatry his state worker has been giving him his medications including his methadone and did receive his methadone dose this morning. He wanted some more because he felt like he wasn't fully treated on just one 10 mg tablets of methadone. He says that he does not abuse his methadone because he has a backpack full of old prescriptions of methadone probably 20 bottles at home but he's been stashing away over the past several months. EMS reports the state worker said he was feeling very low today and demanding more methadone. Patient denies any rash, chills, fevers, cough, constitutional symptoms otherwise. He states he just felt cooped up in the house today and that's why he called the ambulance initially. Allergies and Home Medications Allergies Coded Allergies: Nael Known Allergies (Unverified Allergy, Mild, 02/21/09) Home Medications Alendronate Sodium 70 Mg Tablet, 70 MG PO Sa, (Reported) LAST FILLED #5 05-27-17 Alprazolam 1 Mg Tablet, 1 MG PO QID PRN for ANXIETY, (Reported) Citalopram Hydrobromide 20 Mg Tablet, 20 MG PO DAILY, (Reported) Dextroamphetamine Sulfate 10 Mg Tablet, 30 MG PO DAILY, (Reported) LAST FILLED #90 05-27-17 Diphenoxylate HCl/Atropine 1 Each Tablet, 2 TAB PO TID PRN for DIARRHEA, ( Reported) Methadone Hcl 10 Mg Tablet, 50 MG PO TID, (Reported) LAST FILLED #450 05-27-17 TAKES 5 (10MG) TABLETS Pregabalin 50 Mg Capsule, 50 MG PO BID, (Reported) Constitutional: No chills, No diaphoresis EENTM: No ear pain, No double vision, No eye pain, No vision loss Respiratory: No cough, No short of breath, No wheezing Cardiovascular: No chest pain, No Hx of Intervention, No palpitations Gastrointestinal: No abdominal pain, No constipation, No diarrhea, No dysphagia , No nausea, No vomiting Genitourinary: No discharge, No dysuria, No frequency Musculoskeletal: No back pain, No joint pain, No joint swelling Skin: No pruritus, No rash Psychiatric/Neurological: Denies Headache, Denies Numbness, Paresthesia (right arm) Past Nyidfbe-Cfwuea-Hpxhdh Hx Patient Social History Alcohol Use: Denies Use Recreational Drug Use: No (hx of methadone overdose) Type Used: Cigarettes Former Smoker, Quit: Jul 14, 2017 2nd Hand Smoke Exposure: Yes Recent Foreign Travel: No Contact w/Someone Who Travel: No Recent Infectious Disease Expo: No Recent Hopitalizations: No Physical Abuse: No Sexual Abuse: No Mistreated: No Fear: No Immunizations Up To Date Tetanus Booster (TDap): Unknown PED Vaccines UTD: Yes Date of Influenza Vaccine: Oct 10, 2015 Seasonal Allergies Seasonal Allergies: No Surgeries History of Surgeries: Yes (Rt hip replaced 2014) Surgeries: Gallbladder Respiratory History of Respiratory Disorde: Yes Respiratory Disorders: COPD Currently Using CPAP: No Currently Using BIPAP: No Cardiovascular History of Cardiac Disorders: No Neurological History of Neurological Disord: No Reproductive System Hx Reproductive Disorders: No Genitourinary History of Genitourinary Disor: Yes Genitourinary Disorders: Renal Failure Gastrointestinal History of Gastrointestinal Di: No Gastrointestinal Disorders: Pancreatitis Musculoskeletal History of Musculoskeletal Dis: Yes (AVASCULAR NECROSIS, HIP REPLACEMENT WITH MULTIPLE DISLOCATIONS) Musculoskeletal Disorders: Arthritis Endocrine History of Endocrine Disorders: No HEENT History of HEENT Disorders: No Loss of Vision: Denies Hearing Impairment: Denies Cancer History of Cancer: No Psychosocial History of Psychiatric Problem: Yes Behavioral Health Disorders: ADD/ADHD, Anxiety, Depression Suicide Risk Score: 0 Integumentary History of Skin or Integumenta: No Blood Transfusions History of Blood Disorders: No Adverse Reaction to a Blood Tr: No Family Medical History Significant Family History: No Pertinent Family Hx Physical Exam Vital Signs Vital Sign - Last 12Hours 07/24/17 19:18 Temp 98.0 Pulse 91 Resp 20 B/P (MAP) 107/72 Pulse Ox 97 Capillary Refill : Less Than 3 Seconds General Appearance: No Apparent Distress, Thin Eyes: Bilateral Eye Normal Inspection, Bilateral Eye PERRL, Bilateral Eye EOMI HEENT: PERRL/EOMI, TMs Normal, Normal ENT Inspection, Pharynx Normal Neck: Full Range of Motion, Non Tender, Supple Respiratory: Chest Non Tender, Lungs Clear, Normal Breath Sounds, No Accessory Muscle Use Cardiovascular: Regular Rate, Rhythm, No Edema, Normal Peripheral Pulses Gastrointestinal: Normal Bowel Sounds, Non Tender, Soft Back: Normal Inspection, No Vertebral Tenderness Extremity: Normal Capillary Refill, No Pedal Edema Neurologic/Psychiatric: Alert, Oriented x3, No Motor/Sensory Deficits, Depressed Affect Skin: Normal Color, Warm/Dry Patient Education: Explained Benefits Breath Sounds per Auscultation: Clear Heart Sounds per Auscultation: Regular Airway Exam: Mouth opens >2 fingers, Neck Full Range of Motion, Visulation of Uvula Sedation Adminstration Time: 2034 Re-examination Time: 2099 Progress/Results/Core Measures Results/Orders My Orders Orders - ANGELINE CASTRO Ua Culture If Indicated (07/24/17 19:36) General/Regular (07/25/17 Breakfast) Ekg Tracing (07/24/17 19:51) General/Regular (07/24/17 Dinner) Vital Signs/I&O Vital Sign - Last 12Hours 07/24/17 19:18 Temp 98.0 Pulse 91 Resp 20 B/P (MAP) 107/72 Pulse Ox 97 Blood Pressure Mean: 84 Progress Note #1: Time: 19:44 Progress Note Patient is refusing blood draws at this time as he feels this will just make him feel worse. I explained to him that his paresthesias of his right arm may be an indicator of an atypical coronary syndrome presentation and we should work him up for this with blood and urine as well as an EKG and chest x-ray but he is insistent that he does not want any workup. I was able to talk him into a urinalysis. He is insistent as far as workup goes he only thing he wants us to talk with someone. We spent great length listening to him as well as encouraging him to get involved and gave him ideas for community events he could get into for free. It appears the patient is rather upset about his loss of autonomy over his medication regimen specifically the methadone. His affect appears rather depressed and he is probably been on this methadone for many years which could be contributing to depression as well as his poor mobility. We will forward this note to the PCP to consider referral for counseling outpatient. The patient thinks this would be a very good idea and is interested in following up with a counselor if possible. Progress Note #2: Time: 20:29 Progress Note Patient is not provided a urine and is not allowing us to draw blood or do any further evaluation at this time. States he was just like to go home and just wanted to talk to somebody. Implored that he follow up closely with his primary care physician. ECG Initial ECG Impression Date: Jul 24, 2017 Initial ECG Impression Time: 19:55 Initial ECG Rate: 85 Initial ECG Rhythm: Normal Sinus Initial ECG Intervals: Normal Initial ECG Impression: Normal, Nonspecific Changes Initial ECG Comparisson: No Previous ECG Available Comment No ST wave elevation or depression. Departure Impression Impression: Primary Impression: Arm paresthesia, right Disposition: 01 HOME, SELF-CARE Condition: Stable Departure-Patient Inst. Decision time for Depature: 20:29 Referrals: SANDHYA JARVIS MD (PCP/Family) Primary Care Physician Patient Instructions: Chronic Pain (DC) Add. Discharge Instructions: Drink plenty of fluids and return to the ER immediately. Begin to experience chest pain, nausea, numbness in her arms jaw or neck, shortness of breath. Otherwise all of your primary care physician at [phone] early next week to discuss the possibility of referral to appropriate resources. If you're interested in reducing her dependency on opiates there is a drug treatment program that is an outpatient basis at [facility] at [phone]. All discharge instructions reviewed with patient and/or family. Voiced understanding. Copy Copies To 1: SANDHYA JARVIS MD, TITUS J Jul 24, 2017 19:40
[2017-07-24 20:35] VITALS: BP 138/93
== END 2017-07-24 20:34 | disposition home or self-care (01) ==
LOC: EDUNIT# 19:14 → ER 19:15
DX: R20.2 Paresthesia of skin (principal); J44.9 Chronic obstructive pulmonary disease, unspecified; M16.11 Unilateral primary osteoarthritis, right hip; F90.9 Attention-deficit hyperactivity disorder, unspecified type; F32.9 Major depressive disorder, single episode, unspecified; F41.9 Anxiety disorder, unspecified; Z87.448 Personal history of other diseases of urinary system; Z87.19 Personal history of other diseases of the digestive system; Z87.891 Personal history of nicotine dependence; Z96.641 Presence of right artificial hip joint
CPT/HCPCS: 93005

== ENCOUNTER 2017-07-24 21:48 | Emergency (ER) | payer MEDICARE ==
[~2017-07-24] VITALS: Ht 177.8 cm; Wt 54.4 kg
--- NOTE | 2017-07-24 22:09 | ED Psychosocial ---
General Chief Complaint: Psych/Social Disorder Stated Complaint: SUICIDAL IDEATION Source: patient, caregiver (skil worker) Exam Limitations: no limitations (ANGELINE CASTRO) History of Present Illness Time seen by provider: 21:58 Initial Comments Patient presents to ER by private conveyance with a chief complaint that he wants help her feel better. He was just prior seen within the last couple hours for complaints of being in opiate withdrawal. He is taking his allotted dose of methadone but he had concerns about the last few days he has not taken his opiates. He was not willing to be evaluated medically with blood urine or chest x-ray. He wanted to go home and denied that he mainly that he was suicidal or had any thoughts of harming himself or others multiple times so he was allowed to go. His state care worker brought him back saying that he was giving suicidal statements to him the caregiver ever just this morning stating that he had a plan of taking half of a bottle of his methadone and he has attempted this twice in the past week. Patient is none no stent an inpatient psych. The patient was put inpatient with internal medicine while he was obtunded from his narcotics and no placement was found so he was allowed to go home. The state worker insisted although he has control of all of the patient's opiates he is worried there might be other opiates at home the patient might have access to to carry out his plan for suicide. (ANGELINE CASTRO) Allergies and Home Medications Allergies Coded Allergies: FRITZANo Known Allergies (Unverified Allergy, Mild, 02/21/09) Home Medications Alendronate Sodium 70 Mg Tablet, 70 MG PO Sa, (Reported) LAST FILLED #5 05-27-17 Alprazolam 1 Mg Tablet, 1 MG PO QID PRN for ANXIETY, (Reported) Citalopram Hydrobromide 20 Mg Tablet, 20 MG PO DAILY, (Reported) Dextroamphetamine Sulfate 10 Mg Tablet, 30 MG PO DAILY, (Reported) LAST FILLED #90 05-27-17 Diphenoxylate HCl/Atropine 1 Each Tablet, 2 TAB PO TID PRN for DIARRHEA, ( Reported) Methadone Hcl 10 Mg Tablet, 50 MG PO TID, (Reported) LAST FILLED #450 05-27-17 TAKES 5 (10MG) TABLETS Pregabalin 50 Mg Capsule, 50 MG PO BID, (Reported) Constitutional: No chills, No diaphoresis EENTM: No blurred vision, No double vision Respiratory: No cough, No dyspnea on exertion Cardiovascular: No chest pain, No palpitations Gastrointestinal: No constipation, No diarrhea, No nausea Genitourinary: No discharge, No dysuria Musculoskeletal: No back pain, No joint pain Skin: No pruritus, No rash Psychiatric/Neurological: Denies Headache, Denies Numbness, Denies Paresthesia (ANGELINE CASTRO) Past Zvrtfxn-Zkkbku-Qydeig Hx Patient Social History Alcohol Use: Denies Use Smoking Status: Current Someday Smoker Type Used: Cigarettes Former Smoker, Quit: Jul 14, 2017 2nd Hand Smoke Exposure: Yes Recent Foreign Travel: No Contact w/Someone Who Travel: No Recent Hopitalizations: No (ANGELINE CASTRO) Immunizations Up To Date Tetanus Booster (TDap): Unknown PED Vaccines UTD: Yes Date of Influenza Vaccine: Oct 10, 2015 (ANGELINE CASTRO) Seasonal Allergies Seasonal Allergies: No (ANGELINE CASTRO) Surgeries History of Surgeries: Yes (Rt hip replaced 2014) Surgeries: Gallbladder (ANGELINE CASTRO) Respiratory History of Respiratory Disorde: Yes Respiratory Disorders: COPD Currently Using CPAP: No Currently Using BIPAP: No (ANGELINE CASTRO) Cardiovascular History of Cardiac Disorders: No (ANGELINE CASTRO) Neurological History of Neurological Disord: No (ANGELINE CASTRO) Reproductive System Hx Reproductive Disorders: No (ANGELINE CASTRO) Genitourinary History of Genitourinary Disor: Yes Genitourinary Disorders: Renal Failure (ANGELINE CASTRO) Gastrointestinal History of Gastrointestinal Di: No Gastrointestinal Disorders: Pancreatitis (ANGELINE CASTRO) Musculoskeletal History of Musculoskeletal Dis: Yes (AVASCULAR NECROSIS, HIP REPLACEMENT WITH MULTIPLE DISLOCATIONS) Musculoskeletal Disorders: Arthritis (ANGELINE CASTRO) Endocrine History of Endocrine Disorders: No (ANGELINE CASTRO) HEENT History of HEENT Disorders: No Loss of Vision: Denies Hearing Impairment: Denies (ANGELINE CASTRO) Cancer History of Cancer: No (ANGELINE CASTRO) Psychosocial History of Psychiatric Problem: Yes Behavioral Health Disorders: ADD/ADHD, Anxiety, Depression (ANGELINE CASTRO) Integumentary History of Skin or Integumenta: No (ANGELINE CASTRO) Blood Transfusions History of Blood Disorders: No Adverse Reaction to a Blood Tr: No (ANGELINE CASTRO) Family Medical History Significant Family History: No Pertinent Family Hx (ANGELINE CASTRO) Physical Exam Vital Signs Vital Sign - Last 12Hours 07/24/17 22:01 Temp 97.9 Pulse 100 Resp 20 B/P (MAP) 112/74 Pulse Ox 98 (EMERSON,DANIELA K DO) Vital Signs Capillary Refill : (ANGELINE CASTRO) General Appearance: no apparent distress, thin HEENT: normal ENT inspection, pharynx normal Neck: non-tender, supple, normal inspection Respiratory: chest non-tender, lungs clear, normal breath sounds Cardiovascular: normal peripheral pulses, regular rate, rhythm Peripheral Pulses: 2+ Radial Pulses (R), 2+ Radial Pulses (L) Gastrointestinal: non tender, soft Extremities: non-tender, no pedal edema, normal capillary refill Neurologic/Psychiatric: alert, normal mood/affect, oriented x 3 Appearance/Memory: denies illness, disheveled Behavior/Eye Contact: cooperative, good eye contact Thoughts/Hallucinations: normal thought pattern, no apparent hallucination Skin: normal color, warm/dry (ANGELINE CASTRO) Patient Education: Explained Benefits Breath Sounds per Auscultation: Clear Heart Sounds per Auscultation: Regular Airway Exam: Mouth opens >2 fingers, Neck Full Range of Motion, Visulation of Uvula Sedation Adminstration Time: 2034 Re-examination Time: 2099 (ANGELINE CASTRO) Progress/Results/Core Measures Results/Orders Vital Signs/I&O Vital Sign - Last 12Hours 07/24/17 22:01 Temp 97.9 Pulse 100 Resp 20 B/P (MAP) 112/74 Pulse Ox 98 (EMERSON,DANIELA K DO) Progress Note #1: Time: 22:12 Progress Note Caregiver signed a [place] affidavit that the patient was getting suicidal statements says the patient states he was in pain and wants his pills and the patient has been given his medications as prescribed. Demanded the caregiver not take his belly pills away because he was going to take all of them and end it. I have asked [facility] come and set a screener to evaluate the patient. They have to talk to their supervisor aircraft maintenance as the patient is still not currently endorsing suicidal thoughts. Progress Note #2: Time: 23:20 Progress Note [facility] has evaluated the patient. Screeners name is Yair Oconnor. Pt denied SI/HI. He cannot guarantee that he will not attempt suicide ever. He still is refusing medical evaluation by blood draw, urine or XRay. He states he wants to go home and sleep. Yair does not feel he meets inpt psych criteria. He is too old for [facility]. even if he meets inpatient criteria he is refusing medical evaluation and therefore would not be accepted anywhere. His use of methadone also precludes him from entry into most inpatient psych's as well. (ANGELINE CASTRO) Progress Note : Progress Note 2335--ASSUMED CARE FROM DR. CASTRO, YAIR IS SPEAKING WITH PT AND HIS CAREGIVER 2345--SPOKE WITH YAIR [facility]. PT DOES NOT MEET CRITERIA FOR INPATIENT ADMIT. PT IS TO FOLLOW UP WITH DR. JARVIS TOMORROW FOR ADDITIONAL CARE--REPORTEDLY HE IS ATTEMPTING TO FIND PSYCH CARE FOR HIM WELL. PT CONTINUES TO REFUSE ANY TESTS AND IS DEMANDING TO GO HOME. PART TIME IS WITNESS TO ALL OF THIS AND IS AWARE, AND WILL BE TAKING PT HOME. PT'S PART TIME HAS ALL OF PT'S MEDICATIONS (DANIELA NORMAN DO) Departure Impression Impression: Primary Impression: Suicidal risk Disposition: 01 HOME, SELF-CARE Condition: Stable Departure-Patient Inst. Referrals: SANDHYA JARVIS MD (PCP/Family) Primary Care Physician Patient Instructions: SUICIDE CONTRACT, Suicide Prevention, ALCOHOL AND SUBSTANCE ABUSE Add. Discharge Instructions: FOLLOW UP WITH DR. JARVIS TOMORROW/LATER TODAY FOR FURTHER CARE All discharge instructions reviewed with patient and/or family. Voiced understanding. Copy Copies To 1: SANDHYA JARVIS MD, TITUS J Jul 24, 2017 22:09 DANIELA NORMAN DO Jul 24, 2017 23:50
[2017-07-24 23:57] VITALS: BP 97/66
== END 2017-07-24 23:57 | disposition home or self-care (01) ==
LOC: EDUNIT# 21:48 → ER 21:49
DX: R45.851 Suicidal ideations (principal); J44.9 Chronic obstructive pulmonary disease, unspecified; M16.11 Unilateral primary osteoarthritis, right hip; F90.9 Attention-deficit hyperactivity disorder, unspecified type; F41.9 Anxiety disorder, unspecified; F32.9 Major depressive disorder, single episode, unspecified; F17.210 Nicotine dependence, cigarettes, uncomplicated; Z87.19 Personal history of other diseases of the digestive system; Z87.448 Personal history of other diseases of urinary system; Z96.641 Presence of right artificial hip joint
CPT/HCPCS: 99284

== ENCOUNTER 2017-08-19 07:27 | Emergency (ER) | payer MEDICARE ==
[~2017-08-19] VITALS: Ht 177.8 cm; Wt 54.5 kg
--- OUTSIDE RECORDS SUMMARY | 2017-08-19 07:33 | XMS REPORT ---
Author Author OJ ESCAMILLA Organization [facility] Address [address] [place] [address] Care Team Providers Care Dietitian Teacher Name Role Phone OJ ESCAMILLA Unavailable PROBLEMS Type Condition ICD9-CM Code [id number] Code Onset Dates Condition Status SNOMED Code Problem Unspecified symptoms and signs involving cognitive functions and awareness R41.9 Active 336189601 Problem Depressive disorder, not elsewhere classified F32.9 Active 42586552 Problem DTAP TEST V06.1 Active ALLERGIES No Information SOCIAL HISTORY Never Assessed PLAN OF CARE VITAL SIGNS MEDICATIONS Medication Instructions Dosage Frequency Start Date End Date Duration Status Fosamax Active Methadone HCl Active Xanax Active Dexedrine Active RESULTS No Results PROCEDURES Procedure Date Ordered Result Body Site Psychotherapy, patient &/family, 45 minutes, new patient Dec 23, 2016 IMMUNIZATIONS No Known Immunizations
--- OUTSIDE RECORDS SUMMARY | 2017-08-19 07:33 | XMS REPORT ---
Author LEONIDES Navarro [facility] Address [address] [place] [address] Care Team Providers Care Simulation Technician Name Role Phone LEONIDES MADDOX Unavailable PROBLEMS Type Condition ICD9-CM Code WCM60-HX Code Onset Dates Condition Status SNOMED Code Problem DTAP TEST V06.1 Active ALLERGIES Unknown Allergies SOCIAL HISTORY No smoking Hx information available PLAN OF CARE VITAL SIGNS MEDICATIONS Unknown Medications RESULTS No Results PROCEDURES No Known procedures IMMUNIZATIONS No Known Immunizations
--- OUTSIDE RECORDS SUMMARY | 2017-08-19 07:33 | XMS REPORT | Clinical Summary ---
Author Author [facility] Organization [facility] Address Unknown Phone Unavailable Care Team Providers Care Family Law Legal Assistant Name Role Phone PCP Unavailable Source Comments Some departments are not documenting in the electronic medical record. If you do not see the information that you expected, contact Release of Information in the Health Information Management department at [phone] for further assistance in locating additional records.[facility] Allergies No Known Allergies Current Medications Prescription [...] VACCINE 2010 PREVNAR/PNEUMOVAX (#1) 2015 INFLUENZA VACCINE 08/10/2017 Results Not on filefrom Last 3 Months
--- OUTSIDE RECORDS SUMMARY | 2017-08-19 07:33 | XMS REPORT ---
Author Author OJ ESCAMILLA [facility] Address [address] [place] [address] Care Team Providers Care Bit Tapper Name Role Phone OJ ESCAMILLA Unavailable PROBLEMS Type Condition ICD9-CM Code HMR81-EQ Code Onset Dates Condition Status SNOMED Code Problem Unspecified symptoms and signs involving cognitive functions and awareness R41.9 Active 010391519 Problem Depressive disorder, not elsewhere classified F32.9 Active 17540842 Problem DTAP TEST V06.1 Active ALLERGIES No Information SOCIAL HISTORY Never Assessed PLAN OF CARE VITAL SIGNS MEDICATIONS Unknown Medications RESULTS No Results PROCEDURES No Known procedures IMMUNIZATIONS No Known Immunizations
--- NOTE | 2017-08-19 07:53 | ED General ---
General Chief Complaint: General Problems/Pain Stated Complaint: WITHDRAWALS Nursing Triage Note: PT BROUGHT IN BY [facility] WITH C/O POSSIBLE WITHDRAWAL FROM METHADONE. PT REPORTS HE IS UNAWARE WHEN HE LAST TOOK HIS MEDICATIONS. HE STATES HE HAS A PLANT CONTROL AIDE THAT IS SUPPOSED TO HELP HIM MANAGE HIS MEDS, BUT HE HAS BEEN UNABLE TO CONTACT SAID WORKER. PT IS A&O X 3 UPON ARRIVAL TO ED. VSS. Nursing Sepsis Screen: No Definite Risk Source of Information: Patient, EMS, Old Records Exam Limitations: No Limitations History of Present Illness Time Seen by Provider: 07:28 Initial Comments This 67-year-old patient presents to the emergency room via [facility] with complaints of difficulty managing his medications and what he believes to be withdrawal. Patient has taken large quantities of methadone in the past. He had 4500 mg of methadone prescribed in May. He was seen in July for an overdose. He has been seen a couple of times in this ER since then. Patient has difficulty articulating any specific complaints except that he feels like he is withdrawing from medications. He reports his state high speed printer operator has not been around to help him with his medications and could not be reached by phone. He gives a name of Edis Fink with a contact number of [phone]. I could not reach this individual by phone. Vital signs were unremarkable for EMS. Patient is alert and oriented to person, place, and time of day. He is disoriented to his age and month. He is noted to have some tremors. Nursing staff, and that his cognitive status appears to be similar to his prior recent visits. Allergies and Home Medications Allergies Coded Allergies: NKANo Known Allergies (Unverified Allergy, Mild, 02/21/09) Home Medications Alendronate Sodium 70 Mg Tablet, 70 MG PO Sa, (Reported) LAST FILLED #5 05-27-17 Alprazolam 1 Mg Tablet, 1 MG PO QID PRN for ANXIETY, (Reported) Citalopram Hydrobromide 20 Mg Tablet, 20 MG PO DAILY, (Reported) Dextroamphetamine Sulfate 10 Mg Tablet, 30 MG PO DAILY, (Reported) LAST FILLED #90 05-27-17 Diphenoxylate HCl/Atropine 1 Each Tablet, 2 TAB PO TID PRN for DIARRHEA, ( Reported) Methadone Hcl 10 Mg Tablet, 50 MG PO TID, (Reported) LAST FILLED #450 05-27-17 TAKES 5 (10MG) TABLETS Pregabalin 50 Mg Capsule, 50 MG PO BID, (Reported) Constitutional: see HPI EENTM: no symptoms reported Respiratory: no symptoms reported Cardiovascular: no symptoms reported Gastrointestinal: no symptoms reported Genitourinary: no symptoms reported Musculoskeletal: other (chronic pain) Skin: no symptoms reported Psychiatric/Neurological: See HPI Hematologic/Lymphatic: No Symptoms Reported Past Iopykur-Xvnura-Aojlpk Hx Patient Social History Alcohol Use: Denies Use Recreational Drug Use: No Type Used: Cigarettes Former Smoker, Quit: Jul 14, 2017 2nd Hand Smoke Exposure: Yes Recent Foreign Travel: No Contact w/Someone Who Travel: No Recent Infectious Disease Expo: No Recent Hopitalizations: No Physical Abuse: No Sexual Abuse: No Immunizations Up To Date Tetanus Booster (TDap): Unknown PED Vaccines UTD: Yes Date of Influenza Vaccine: Oct 10, 2015 Seasonal Allergies Seasonal Allergies: No Surgeries History of Surgeries: Yes (Rt hip replaced 2014) Surgeries: Gallbladder, Orthopedic Respiratory History of Respiratory Disorde: Yes Respiratory Disorders: COPD Currently Using CPAP: No Currently Using BIPAP: No Cardiovascular History of Cardiac Disorders: No Neurological History of Neurological Disord: No Reproductive System Hx Reproductive Disorders: No Genitourinary History of Genitourinary Disor: Yes Genitourinary Disorders: Renal Failure Gastrointestinal History of Gastrointestinal Di: Yes Gastrointestinal Disorders: Pancreatitis Musculoskeletal History of Musculoskeletal Dis: Yes (AVASCULAR NECROSIS, HIP REPLACEMENT WITH MULTIPLE DISLOCATIONS) Musculoskeletal Disorders: Arthritis Endocrine History of Endocrine Disorders: No HEENT History of HEENT Disorders: No Loss of Vision: Denies Hearing Impairment: Denies Cancer History of Cancer: No Psychosocial History of Psychiatric Problem: Yes Behavioral Health Disorders: ADD/ADHD, Anxiety, Depression Suicide Risk Score: 0 Integumentary History of Skin or Integumenta: No Blood Transfusions History of Blood Disorders: No Adverse Reaction to a Blood Tr: No Family Medical History Significant Family History: No Pertinent Family Hx Physical Exam Vital Signs Vital Sign - Last 12Hours 08/19/17 07:33 Temp 98.1 Pulse 96 Resp 20 B/P (MAP) 142/89 Pulse Ox 100 O2 Delivery Room Air Capillary Refill : Less Than 3 Seconds General Appearance: WD/WN, Mild Distress HEENT: PERRL/EOMI, Normal ENT Inspection Neck: Normal Inspection Respiratory: Lungs Clear, Normal Breath Sounds, No Accessory Muscle Use, No Respiratory Distress Cardiovascular: Regular Rate, Rhythm, No Edema, No Murmur Gastrointestinal: Normal Bowel Sounds, Non Tender, Soft Extremity: Normal Inspection, No Pedal Edema Neurologic/Psychiatric: Alert, No Motor/Sensory Deficits, Normal Mood/Affect, qi specialist II-XII Norm as Tested, Other (oriented to person, place, and time of day. Disoriented to month and age) Skin: Normal Color, Warm/Dry Patient Education: Explained Benefits Breath Sounds per Auscultation: Clear Heart Sounds per Auscultation: Regular Airway Exam: Mouth opens >2 fingers, Neck Full Range of Motion, Visulation of Uvula Sedation Adminstration Time: 2034 Re-examination Time: 2099 Progress/Results/Core Measures Results/Orders My Orders Orders - DISHA FOSTER MD Cbc With Automated Diff (08/19/17 07:37) Comprehensive Metabolic Panel (08/19/17 07:37) Drug Screen Stat (Urine) (08/19/17 07:37) Ua Culture If Indicated (08/19/17 07:37) Saline Lock/Iv-Start (08/19/17 07:37) Vital Signs/I&O Vital Sign - Last 12Hours 08/19/17 07:33 Temp 98.1 Pulse 96 Resp 20 B/P (MAP) 142/89 Pulse Ox 100 O2 Delivery Room Air Blood Pressure Mean: 106 Progress Note #1: Time: 07:54 Progress Note Patient is refusing assessment with blood work or UA. Options were reviewed with patient. Patient was informed he would not receive any medications unless he could be appropriately assessed for his safety. Patient requested to be discharged. Request was granted. Patient departed via taxi. Progress Note #2: Time: 08:45 Progress Note I did discuss patient's circumstances with Margret Fink APRN and Dr. Jarvis' s office. Patient does have an appointment with them tomorrow. He did show me his appointment card. A message was also left with Edis Aleks at the number provided. As of time of this note Mr. Fink did not respond. Departure Impression Impression: Primary Impression: Withdrawal complaint Additional Impressions: Chronic pain Qualified Codes: G89.4 - Chronic pain syndrome problems with medication management Disposition: HOME, SELF-CARE Condition: Stable/Unchanged Departure-Patient Inst. Decision time for Depature: 07:54 Referrals: SANDHYA JARVIS MD (PCP/Family) Primary Care Physician Patient Instructions: CHRONIC PAIN, Prescription Drug Withdrawal (DC) Add. Discharge Instructions: Follow-up with Dr. Jarvis as soon as possible. Return to care if symptoms worsen. All discharge instructions reviewed with patient and/or family. Voiced understanding. Copy Copies To 1: SANDHYA JARVIS MD, JOSHUA T MD Aug 19, 2017 07:53
[2017-08-19 08:00] VITALS: BP 142/89
== END 2017-08-19 08:00 | disposition home or self-care (01) ==
LOC: EDUNIT# 07:27 → ER 07:28
DX: F11.20 Opioid dependence, uncomplicated (principal); G89.29 Other chronic pain; F90.9 Attention-deficit hyperactivity disorder, unspecified type; F41.9 Anxiety disorder, unspecified; F32.9 Major depressive disorder, single episode, unspecified; J44.9 Chronic obstructive pulmonary disease, unspecified; Z96.641 Presence of right artificial hip joint; Z87.891 Personal history of nicotine dependence
CPT/HCPCS: 99283

== ENCOUNTER 2018-01-24 13:32 | Emergency (ER) | payer MEDICARE ==
[~2018-01-24] VITALS: Ht 177.8 cm; Wt 59.0 kg
--- OUTSIDE RECORDS SUMMARY | 2018-01-24 13:37 | XMS REPORT | Clinical Summary ---
Author Author [facility] Organization [facility] Address Unknown Phone Unavailable Care Team Providers Care Automotive Diagnostic Technician Name Role Phone Dat Batista MD Unavailable Mike Valencia MD PCP Mojgan Fink MD Unavailable Katelyn Padilla APRN Unavailable Unavailable Source Comments Some departments are not documenting in the electronic medical record. If you do not see the information that you expected, contact Release of Information in the Health Information Management department at [phone] for further assistance in locating additional records.[facility] Allergies No Known Allergies Current Medications [...] VACCINE 2010 PREVNAR/PNEUMOVAX (#1) 2015 INFLUENZA VACCINE 08/10/2018 Results Not on filefrom Last 3 Months
--- OUTSIDE RECORDS SUMMARY | 2018-01-24 13:38 | XMS REPORT | Continuity of Care Document ---
Author Author [facility] Organization [facility] Address Unknown Phone Unavailable Allergies Active Description Code Type Severity Reaction Onset Reported/Identified Relationship to Patient Clinical Status Yes NKANo Known Allergies NKA Miscellaneous Allergy Mild N/A 02/21/2009 Medications There is no data. Problems Date Dx Coded Attending Type Code Diagnosis Diagnosed By 05/15/2012 Ot 292.11 DRUG- INDUCED PSYCHOTIC DISORDER WITH DEL 05/15/2012 Ot 300.00 ANXIETY STATE NOS 05/15/2012 Ot 305.1 TOBACCO USE DISORDER 05/15/2012 Ot 307.9 SPECIAL SYMPTOM NEC/NOS 05/15/2012 Ot 311 DEPRESSIVE DISORDER NEC 05/15/2012 Ot 338.29 OTHER CHRONIC PAIN 05/15/2012 Ot 733.49 ASEPT NECROSIS BONE NEC 05/15/2012 Ot 781.0 ABN INVOLUN MOVEMENT NEC 05/15/2012 Ot 785.0 TACHYCARDIA NOS 05/15/2012 Ot 965.00 POISONING- OPIUM NOS 05/15/2012 Ot E850.2 ACC POISON- OPIATES NEC 02/09/2013 Ot 996.42 DISLOCATION OF PROSTHETIC JOINT 02/09/2013 Ot E000.8 OTHER EXTERNAL CAUSE STATUS 02/09/2013 Ot E849.0 ACCIDENT IN HOME 02/09/2013 Ot E888.9 FALL NOS 02/09/2013 Ot V43.64 HIP JOINT REPLACEMENT STATUS 03/04/2013 SHERLEY WHITNEY MD Ot 996.42 DISLOCATION OF PROSTHETIC JOINT 03/04/2013 SHERLEY WHITNEY MD Ot E000.8 OTHER EXTERNAL CAUSE STATUS 03/04/2013 SHERLEY WHITNEY MD Ot E849.0 ACCIDENT IN HOME 03/04/2013 SHERLEY WHITNEY MD Ot E927.0 OVEREXERTION FROM SUDDEN STRENUOUS MOVEM 03/04/2013 SHERLEY WHITNEY MD Ot V43.64 HIP JOINT REPLACEMENT STATUS 04/03/2013 DAINA HERNANDEZ Ot 959.6 HIP THIGH INJURY NOS 04/03/2013 ABRAHAM PA, DAINA L Ot 996.42 DISLOCATION OF PROSTHETIC JOINT 04/03/2013 DAINA HERNANDEZ L Ot E000.8 OTHER EXTERNAL CAUSE STATUS 04/03/2013 DAINA HERNANDEZ Ot E849.0 ACCIDENT IN HOME 04/03/2013 DAINA HERNANDEZ Ot E927.0 OVEREXERTION FROM SUDDEN STRENUOUS MOVEM 04/03/2013 SOLANGE HERNANDEZEN L Ot V43.64 HIP JOINT REPLACEMENT STATUS 04/06/2013 SHWETA GARCIA MD Ot 300.00 ANXIETY STATE NOS 04/06/2013 SHWETA GARCIA MD Ot 305.1 TOBACCO USE DISORDER 04/06/2013 SHWETA GARCIA MD Ot 996.42 DISLOCATION OF PROSTHETIC JOINT 04/06/2013 SHWETA GARCIA MD Ot V43.64 HIP JOINT REPLACEMENT STATUS 05/04/2013 TREVON DERAS MD Ot 996.42 DISLOCATION OF PROSTHETIC JOINT 05/04/2013 TREVON DERAS MD Ot E000.8 OTHER EXTERNAL CAUSE STATUS 05/04/2013 TREVON DERAS MD Ot E849.0 ACCIDENT IN HOME 05/04/2013 TREVON DERAS MD Ot E927.0 OVEREXERTION FROM SUDDEN STRENUOUS MOVEM 05/04/2013 TREVON DERAS MD A Ot V43.64 HIP JOINT REPLACEMENT STATUS 05/29/2013 SHERLEY WHITNEY MD Ot 305.1 TOBACCO USE DISORDER 05/29/2013 SHERLEY WHITNEY MD Ot 996.42 DISLOCATION OF PROSTHETIC JOINT 05/29/2013 SHERLEY WHITNEY MD Ot V43.64 HIP JOINT REPLACEMENT STATUS 05/29/2013 SHERLEY WHITNEY MD Ot V58.69 OTH MED,LT,CURRENT USE 06/07/2013 SANDHYA JARVIS MD Ot 835.01 POSTERIOR DISLOC HIP-CL 06/07/2013 SANDHYA JARVIS MD Ot E928.9 ACCIDENT NOS 06/26/2013 GITA GARCÍA MD Ot 305.1 TOBACCO USE DISORDER 06/26/2013 GITA GARCÍA MD Ot 835.03 ANT DISLOC HIP NEC-CLOS 06/26/2013 GITA GARCÍA MD Ot 959.6 HIP THIGH INJURY NOS 06/26/2013 GITA GARCÍA MD Ot E000.8 OTHER EXTERNAL CAUSE STATUS 06/26/2013 GITA GARCÍA MD Ot E030 UNSPECIFIED ACTIVITY 06/26/2013 GITA GARCÍA MD Ot E849.0 ACCIDENT IN HOME 06/26/2013 GITA GARCÍA MD Ot E885.9 FALL FROM SLIPPING, TRIPPING, OR STUMBLI 07/10/2013 SHWETA GARCIA MD Ot 305.91 DRUG ABUSE NEC-CONTIN 07/10/2013 SHWETA GARCIA MD Ot 496 CHR AIRWAY OBSTRUCT NEC 07/10/2013 SHWETA GARCIA MD Ot 996.42 DISLOCATION OF PROSTHETIC JOINT 07/10/2013 SHWETA GARCIA MD Ot V43.64 HIP JOINT REPLACEMENT STATUS 07/22/2013 SHWETA GARCIA MD Ot 496 CHR AIRWAY OBSTRUCT NEC 07/22/2013 SHWETA GARCIA MD Ot 996.42 DISLOCATION OF PROSTHETIC JOINT 07/22/2013 SHWETA GARCIA MD Ot V12.61 PERSONAL HISTORY, PNEUMONIA (RECURRENT) 07/22/2013 SHWETA GARCIA MD Ot V43.64 HIP JOINT REPLACEMENT STATUS 10/25/2013 JUAN F TORRES APRN Ot 959.6 HIP THIGH INJURY NOS 10/25/2013 JUAN F TORRES COPYRIGHT CLERK Ot 996.49 [facility] OF OTH REELER OPERATOR ORTHOPEDIC 10/25/2013 JUAN F TORRES COPYRIGHT CLERK Ot E000.8 OTHER EXTERNAL CAUSE STATUS 10/25/2013 JUAN F TORRES COPYRIGHT CLERK Ot E849.0 ACCIDENT IN HOME 10/25/2013 JUAN F TORRES COPYRIGHT CLERK Ot E878.1 ABN REACT-ARTIF IMPLANT 10/25/2013 JUAN F TORRES COPYRIGHT CLERK Ot E888.9 FALL NOS 10/25/2013 JUAN F TORRES COPYRIGHT CLERK Ot V43.64 HIP JOINT REPLACEMENT STATUS 01/15/2014 SANDHYA JARVIS MD Ot 263.9 PROTEIN-MARIE MALNUTR NOS 01/15/2014 SANDHYA JARVIS MD Ot 300.00 ANXIETY STATE NOS 01/15/2014 SANDHYA JARVIS MD Ot 305.1 TOBACCO USE DISORDER 01/15/2014 SANDHYA JARVIS MD Ot 496 CHR AIRWAY OBSTRUCT NEC 01/15/2014 SANDHYA JARVIS MD Ot 718.35 RECUR DISLOCAT-PELVIS 01/15/2014 SANDHYA JARVIS MD Ot V43.64 HIP JOINT REPLACEMENT STATUS 11/17/2015 JUAN F TORRES APRN Ot F17.210 NICOTINE DEPENDENCE, CIGARETTES, UNCOMPL 11/17/2015 JUAN F TORRES APRN Ot 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, STAGE 2 11/17/2015 JUAN F TRORES APRN Ot Z96.641 PRESENCE OF RIGHT ARTIFICIAL HIP JOINT 12/18/2015 JUAN F TORRES APRN Ot F17.210 12/18/2015 JUAN F TORRES APRN Ot L89.212 12/18/2015 JUAN F TORRES APRN Ot Z96.641 02/08/2017 DAINA HERNANDEZ Ot 959.6 HIP THIGH INJURY NOS 02/08/2017 DAINA HERNANDEZ Ot 996.42 DISLOCATION OF PROSTHETIC JOINT 02/08/2017 DAINA HERNANDEZ Ot E000.8 OTHER EXTERNAL CAUSE STATUS 02/08/2017 DAINA HERNANDEZ Ot E849.0 ACCIDENT IN HOME 02/08/2017 DAINA HERNANDEZ Ot E927.0 OVEREXERTION FROM SUDDEN STRENUOUS MOVEM 02/08/2017 DAINA HERNANDEZ Ot V43.64 HIP JOINT REPLACEMENT STATUS 02/19/2017 JUAN F TORRES APRN Ot R44.9 UNSP SYMPTOMS AND SIGNS W GENERAL SENSAT 02/19/2017 JUAN F TORRES APRN Ot S32.511A FRACTURE OF SUPERIOR RIM OF RIGHT PUBIS, 02/19/2017 JUAN F TORRES APRN Ot S79.911A UNSPECIFIED INJURY OF RIGHT HIP, INITIAL 02/19/2017 JUAN F TORRES APRN Ot W19.XXXA UNSPECIFIED FALL, INITIAL ENCOUNTER 02/19/2017 JUAN F TORRES APRN Ot Y99.8 OTHER EXTERNAL CAUSE STATUS 02/19/2017 JUAN F TORRES APRN Ot Z96.642 PRESENCE OF LEFT ARTIFICIAL HIP JOINT 02/20/2017 JUAN F TORRES APRN Ot R44.9 UNSP SYMPTOMS AND SIGNS W GENERAL SENSAT 02/20/2017 JUAN F TORRES APRN Ot S32.511A FRACTURE OF SUPERIOR RIM OF RIGHT PUBIS, 02/20/2017 JUAN F TORRES APRN Ot S79.911A UNSPECIFIED INJURY OF RIGHT HIP, INITIAL 02/20/2017 JUAN F TORRES APRN Ot W19.XXXA UNSPECIFIED FALL, INITIAL ENCOUNTER 02/20/2017 JUAN F TORRES COPYRIGHT CLERK Ot Y99.8 OTHER EXTERNAL CAUSE STATUS 02/20/2017 JUAN F TORRES COPYRIGHT CLERK Ot Z96.642 PRESENCE OF LEFT ARTIFICIAL HIP JOINT 07/16/2017 ANGELINE CASTRO MD Ot F11.20 OPIOID DEPENDENCE, UNCOMPLICATED 07/16/2017 ANGELINE CASTRO MD Ot F32.9 MAJOR DEPRESSIVE DISORDER, SINGLE EPISOD 07/16/2017 ANGELINE CASTRO MD Ot F41.9 ANXIETY DISORDER, UNSPECIFIED 07/16/2017 ANGELINE CASTRO MD Ot J44.9 CHRONIC OBSTRUCTIVE PULMONARY DISEASE, U 07/16/2017 ANGELINE CASTRO MD Ot T40.3X2A POISONING BY METHADONE, INTENTIONAL SELF 07/16/2017 ANGELINE CASTRO MD Ot T42.4X2A POISONING BY BENZODIAZEPINES, INTENTIONA 07/16/2017 ANGELINE CASTRO MD Ot Z87.19 PERSONAL HISTORY OF OTHER DISEASES OF 07/16/2017 ANGELINE CASTRO MD Ot Z96.641 PRESENCE OF RIGHT ARTIFICIAL HIP JOINT 07/18/2017 ANGELINE CASTRO MD Ot F11.20 OPIOID DEPENDENCE, UNCOMPLICATED 07/18/2017 ANGELINE CASTRO MD Ot F32.9 MAJOR DEPRESSIVE DISORDER, SINGLE EPISOD 07/18/2017 ANGELINE CASTRO MD Ot F41.9 ANXIETY DISORDER, UNSPECIFIED 07/18/2017 ANGELINE CASTRO MD Ot J44.9 CHRONIC OBSTRUCTIVE PULMONARY DISEASE, U 07/18/2017 ANGELINE CASTRO MD Ot T40.3X2A POISONING BY METHADONE, INTENTIONAL SELF 07/18/2017 ANGELINE CASTRO MD Ot T42.4X2A POISONING BY BENZODIAZEPINES, INTENTIONA 07/18/2017 ANGELINE CASTRO MD Ot Z87.19 PERSONAL HISTORY OF OTHER DISEASES OF 07/18/2017 ANGELINE CASTRO MD Ot Z96.641 PRESENCE OF RIGHT ARTIFICIAL HIP JOINT 07/18/2017 CHINO PICKARD DO Ot F17.210 NICOTINE DEPENDENCE, CIGARETTES, UNCOMPL 07/18/2017 CHINO PICKARD DO Ot F32.9 MAJOR DEPRESSIVE DISORDER, SINGLE EPISOD 07/18/2017 CHINO PICKARD DO Ot J44.9 CHRONIC OBSTRUCTIVE PULMONARY DISEASE, U 07/18/2017 NEERAJ NEWTON CHINO Ot R40.0 SOMNOLENCE 07/18/2017 PICKARD DO CHINO Ot T40.3X4A POISONING BY METHADONE, UNDETERMINED, IN 07/18/2017 NICO PICKARD DOI Ot Z79.899 OTHER RESIDENTIAL (CURRENT) DRUG THERAPY 07/18/2017 NEERAJ NEWTON CHINO Ot Z96.641 PRESENCE OF RIGHT ARTIFICIAL HIP JOINT 07/18/2017 NEERAJ NEWTON CHINO Ot F17.210 NICOTINE DEPENDENCE, CIGARETTES, UNCOMPL 07/18/2017 NEERAJ NEWTON CHINO Ot F32.9 MAJOR DEPRESSIVE DISORDER, SINGLE EPISOD 07/18/2017 NEERAJ NEWTON CHINO Ot J44.9 CHRONIC OBSTRUCTIVE PULMONARY DISEASE, U 07/18/2017 NICO PICKARD DOI Ot R40.0 SOMNOLENCE 07/18/2017 NEERAJ NEWTON CHINO Ot T40.3X4A POISONING BY METHADONE, UNDETERMINED, IN 07/18/2017 NICO PICKARD DOI Ot Z79.899 OTHER RESIDENTIAL (CURRENT) DRUG THERAPY 07/18/2017 NICO PICKARD DOI Ot Z96.641 PRESENCE OF RIGHT ARTIFICIAL HIP JOINT 07/22/2017 ANGELINE CASTRO MD Ot F11.20 OPIOID DEPENDENCE, UNCOMPLICATED 07/22/2017 ANGELINE CASTRO MD Ot F32.9 MAJOR DEPRESSIVE DISORDER, SINGLE EPISOD 07/22/2017 ANGELINE CASTRO MD Ot F41.9 ANXIETY DISORDER, UNSPECIFIED 07/22/2017 ANGELINE CASTRO MD Ot J44.9 CHRONIC OBSTRUCTIVE PULMONARY DISEASE, U 07/22/2017 ANGELINE CASTRO MD Ot T40.3X2A POISONING BY METHADONE, INTENTIONAL SELF 07/22/2017 ANGELINE CASTRO MD J Ot T42.4X2A POISONING BY BENZODIAZEPINES, INTENTIONA 07/22/2017 ANGELINE CASTRO MD J Ot Z87.19 PERSONAL HISTORY OF OTHER DISEASES OF TH 07/22/2017 ANGELINE CASTRO MD Ot Z96.641 PRESENCE OF RIGHT ARTIFICIAL HIP JOINT 07/24/2017 ANGELINE CASTRO MD Ot F32.9 MAJOR DEPRESSIVE DISORDER, SINGLE EPISOD 07/24/2017 ANGELINE CASTRO MD Ot F41.9 ANXIETY DISORDER, UNSPECIFIED 07/24/2017 ANGELINE CASTRO MD Ot F90.9 ATTENTION-DEFICIT HYPERACTIVITY DISORDER 07/24/2017 ANGELINE CASTRO MD Ot J44.9 CHRONIC OBSTRUCTIVE PULMONARY DISEASE, U 07/24/2017 ANGELINE CASTRO MD Ot M16.11 UNILATERAL PRIMARY OSTEOARTHRITIS, RIGHT 07/24/2017 ANGELINE CASTRO MD Ot R20.2 PARESTHESIA OF SKIN 07/24/2017 ANGELINE CASTRO MD Ot Z87.19 PERSONAL HISTORY OF OTHER DISEASES OF TH 07/24/2017 ANGELINE CASTRO MD Ot Z87.448 PERSONAL HISTORY OF OTHER DISEASES OF UR 07/24/2017 ANGELINE CASTRO MD Ot Z87.891 PERSONAL HISTORY OF NICOTINE DEPENDENCE 07/24/2017 ANGELINE CASTRO MD Ot Z96.641 PRESENCE OF RIGHT ARTIFICIAL HIP JOINT 07/24/2017 SANDHYA JARVIS MD Ot 835.01 POSTERIOR DISLOC HIP-CL 07/24/2017 SANDHYA JARVIS MD Ot E000.8 OTHER EXTERNAL CAUSE STATUS 07/24/2017 SANDHYA JARVIS MD Ot E928.9 ACCIDENT NOS 07/24/2017 RONNI EVANGELISTA N COPYRIGHT CLERK Ot 719.45 JOINT PAIN-PELVIS 07/24/2017 SANDHYA JARVIS MD Ot 835.01 POSTERIOR DISLOC HIP-CL 07/24/2017 SANDHYA JARVIS MD Ot E000.8 OTHER EXTERNAL CAUSE STATUS 07/24/2017 SANDHYA JARVIS MD Ot E928.9 ACCIDENT NOS 07/24/2017 RONNI EVANGELISTA N COPYRIGHT CLERK Ot 719.45 JOINT PAIN-PELVIS 07/24/2017 DANIELA NORMAN DO Ot F17.210 NICOTINE DEPENDENCE, CIGARETTES, UNCOMPL 07/24/2017 DANIELA NORMAN DO Ot F32.9 MAJOR DEPRESSIVE DISORDER, SINGLE EPISOD 07/24/2017 DANIELA NORMAN DO Ot F41.9 ANXIETY DISORDER, UNSPECIFIED 07/24/2017 DANIELA NORMAN DO Ot F90.9 ATTENTION-DEFICIT HYPERACTIVITY DISORDER 07/24/2017 DANIELA NORMAN DO Ot J44.9 CHRONIC OBSTRUCTIVE PULMONARY DISEASE, U 07/24/2017 DANIELA NORMAN DO Ot M16.11 UNILATERAL PRIMARY OSTEOARTHRITIS, RIGHT 07/24/2017 DANIELA NORMAN DO Ot R45.851 SUICIDAL IDEATIONS 07/24/2017 DANIELA NORMAN DO, Ot Z87.19 PERSONAL HISTORY OF OTHER DISEASES OF TH 07/24/2017 DANIELA NORMAN DO Ot Z87.448 PERSONAL HISTORY OF OTHER DISEASES OF UR 07/24/2017 DANIELA NORMAN DO Ot Z96.641 PRESENCE OF RIGHT ARTIFICIAL HIP JOINT 08/10/2017 DAINA HERNANDEZ Ot 959.6 HIP THIGH INJURY NOS 08/10/2017 DAINA HERNANDEZ Ot 996.42 DISLOCATION OF PROSTHETIC JOINT 08/10/2017 DAINA HERNANDEZ Ot E000.8 OTHER EXTERNAL CAUSE STATUS 08/10/2017 DAINA HERNANDEZ Ot E849.0 ACCIDENT IN HOME 08/10/2017 DAINA HERNANDEZ Ot E927.0 OVEREXERTION FROM SUDDEN STRENUOUS MOVEM 08/10/2017 DAINA HERNANDEZ Ot V43.64 HIP JOINT REPLACEMENT STATUS 08/19/2017 CRISTIAN BARNEY, DISHA Ortez Ot F11.20 OPIOID DEPENDENCE, UNCOMPLICATED 08/19/2017 DISHA FOSTER MD T Ot F32.9 MAJOR DEPRESSIVE DISORDER, SINGLE EPISOD 08/19/2017 DISHA FOSTER MD Ot F41.9 ANXIETY DISORDER, UNSPECIFIED 08/19/2017 DISHA FOSTER MD Ot F90.9 ATTENTION-DEFICIT HYPERACTIVITY DISORDER 08/19/2017 CRISTIAN BARNEY, DISHA Ortez Ot G89.29 OTHER CHRONIC PAIN 08/19/2017 DISHA FOSTER MD Ot J44.9 CHRONIC OBSTRUCTIVE PULMONARY DISEASE, U 08/19/2017 DISHA FOSTER MD Ot Z87.891 PERSONAL HISTORY OF NICOTINE DEPENDENCE 08/19/2017 DISHA FOSTER MD Ot Z96.641 PRESENCE OF RIGHT ARTIFICIAL HIP JOINT 08/19/2017 MATHEUS BARNEY, ASNDHYA Dove Ot 835.01 POSTERIOR DISLOC HIP-CL 08/19/2017 MATHEUS BARNEY, SANDHYA Dove Ot E000.8 OTHER EXTERNAL CAUSE STATUS 08/19/2017 SANDHYA JARVIS MD Ot E928.9 ACCIDENT NOS 08/19/2017 RONNI EVANGELISTA N COPYRIGHT CLERK Ot 719.45 JOINT PAIN-PELVIS 08/25/2017 DISHA FOSTER MD T Ot F11.20 OPIOID DEPENDENCE, UNCOMPLICATED 08/25/2017 CRISTIAN BARNEY, DISHA Ortez Ot F32.9 MAJOR DEPRESSIVE DISORDER, SINGLE EPISOD 08/25/2017 CRISTIAN BARNEY, DISHA Ortez Ot F41.9 ANXIETY DISORDER, UNSPECIFIED 08/25/2017 IDSHA FOSTER MD, Ot F90.9 ATTENTION-DEFICIT HYPERACTIVITY DISORDER 08/25/2017 DISHA FOSTER MD, Ot G89.29 OTHER CHRONIC PAIN 08/25/2017 CRISTIAN BARNEY, DISHA Ortez Ot J44.9 CHRONIC OBSTRUCTIVE PULMONARY DISEASE, U 08/25/2017 CRISTIAN BARNEY, DISHA Ortez Ot Z87.891 PERSONAL HISTORY OF NICOTINE DEPENDENCE 08/25/2017 DISHA FOSTER MD, Ot Z96.641 PRESENCE OF RIGHT ARTIFICIAL HIP JOINT Procedures Code Description Performed By Performed On 79.75 CL REDUC DISLOC-HIP 04/06/2013 79.75 CL REDUC DISLOC-HIP 06/07/2013 79.75 CL REDUC DISLOC-HIP 07/10/2013 Results Test Result Range Complete blood count (CBC) with automated white blood cell (WBC) differential - 07/16/17 20:00 Blood leukocytes automated count (number/volume) 12.9 10*3/uL 4.3-11.0 Blood erythrocytes automated count (number/volume) 4.30 10*6/uL 4.35-5.85 Venous blood hemoglobin measurement (mass/volume) 11.6 g/dL 13.3-17.7 Blood hematocrit (volume fraction) 37 % 40-54 Automated erythrocyte mean corpuscular volume 87 [foz_us] 80-99 Automated erythrocyte mean corpuscular hemoglobin (mass per erythrocyte) 27 pg 25-34 Automated erythrocyte mean corpuscular hemoglobin concentration measurement ( mass/volume) 31 g/dL 32-36 Automated erythrocyte distribution width ratio 15.3 % 10.0-14.5 Automated blood platelet count (count/volume) 297 10*3/uL 130-400 Automated blood platelet mean volume measurement 9.0 [foz_us] 7.4-10.4 Automated blood neutrophils/100 leukocytes 81 % 42-75 Automated blood lymphocytes/100 leukocytes 10 % 12-44 Blood monocytes/100 leukocytes 9 % 0-12 Automated blood eosinophils/100 leukocytes 0 % 0-10 Automated blood basophils/100 leukocytes 0 % 0-10 Blood neutrophils automated count (number/volume) 10.5 10*3 1.8-7.8 Blood lymphocytes automated count (number/volume) 1.3 10*3 1.0-4.0 Blood monocytes automated count (number/volume) 1.1 10*3 0.0-1.0 Automated eosinophil count 0.0 10*3/uL 0.0-0.3 Automated blood basophil count (count/volume) 0.0 10*3/uL 0.0-0.1 Comprehensive metabolic panel - 07/16/17 20:00 Serum or plasma sodium measurement (moles/volume) 135 mmol/L 135-145 Serum or plasma potassium measurement (moles/volume) 4.3 mmol/L 3.6-5.0 Serum or plasma chloride measurement (moles/volume) 101 mmol/L 98-107 Carbon dioxide 22 mmol/L 21-32 Serum or plasma anion gap determination (moles/volume) 12 mmol/L 5-14 Serum or plasma urea nitrogen measurement (mass/volume) 21 mg/dL 7-18 Serum or plasma creatinine measurement (mass/volume) 0.99 mg/dL 0.60-1.30 Serum or plasma urea nitrogen/creatinine mass ratio 21 NRG Serum or plasma creatinine measurement with calculation of estimated glomerular filtration rate > NRG Serum or plasma glucose measurement (mass/volume) 78 mg/dL 70-105 Serum or plasma calcium measurement (mass/volume) 9.4 mg/dL 8.5-10.1 Serum or plasma total bilirubin measurement (mass/volume) 0.3 mg/dL 0.1-1.0 Serum or plasma alkaline phosphatase measurement (enzymatic activity/volume) 105 U/L 40-136 Serum or plasma aspartate aminotransferase measurement (enzymatic activity/ volume) 31 U/L 5-34 Serum or plasma alanine aminotransferase measurement (enzymatic activity/volume ) 17 U/L 0-55 Serum or plasma protein measurement (mass/volume) 7.9 g/dL 6.4-8.2 Serum or plasma albumin measurement (mass/volume) 3.6 g/dL 3.2-4.5 Serum or plasma salicylates measurement (mass/volume) - 07/16/17 20:00 Serum or plasma salicylates measurement (mass/volume) < mg/dL 5.0-20.0 Serum or plasma acetaminophen measurement (mass/volume) - 07/16/17 20:00 Serum or plasma acetaminophen measurement (mass/volume) < ug/mL 10-30 Serum or plasma ethanol measurement (mass/volume) - 07/16/17 20:00 Serum or plasma ethanol measurement (mass/volume) < mg/dL <10 Urine drug screening test - 07/17/17 00:50 Urine phencyclidine detection by screening method NEGATIVE NEGATIVE Urine benzodiazepines detection by screening method POSITIVE NEGATIVE Urine cocaine detection NEGATIVE NEGATIVE Urine amphetamines detection by screening method POSITIVE NEGATIVE Urine methamphetamine detection by screening method NEGATIVE NEGATIVE Urine cannabinoids detection by screening method NEGATIVE NEGATIVE Urine opiates detection by screening method NEGATIVE NEGATIVE Urine barbiturates detection NEGATIVE NEGATIVE Screening urine tricyclic antidepressants detection NEGATIVE NEGATIVE Urine methadone detection by screening method POSITIVE NEGATIVE Urine oxycodone detection NEGATIVE NEGATIVE Urine propoxyphene detection NEGATIVE NEGATIVE Complete urinalysis with reflex to culture - 07/17/17 00:50 Urine color determination YELLOW NRG Urine clarity determination CLEAR NRG Urine pH measurement by test strip 6.5 5-9 Specific gravity of urine by test strip 1.015 1.016- 1.022 Urine protein assay by test strip, semi-quantitative 1+ NEGATIVE Urine glucose detection by automated test strip NEGATIVE NEGATIVE Erythrocytes detection in urine sediment by light microscopy 1+ NEGATIVE Urine ketones detection by automated test strip NEGATIVE NEGATIVE Urine nitrite detection by test strip NEGATIVE NEGATIVE Urine total bilirubin detection by test strip NEGATIVE NEGATIVE Urine urobilinogen measurement by automated test strip (mass/volume) NORMAL NORMAL Urine leukocyte esterase detection by dipstick 1+ NEGATIVE Automated urine sediment erythrocyte count by microscopy (number/high power field) NONE NRG Automated urine sediment leukocyte count by microscopy (number/high power field ) NONE NRG Bacteria detection in urine sediment by light microscopy NEGATIVE NRG Squamous epithelial cells detection in urine sediment by light microscopy 0-2 NRG Crystals detection in urine sediment by light microscopy NONE NRG Casts detection in urine sediment by light microscopy NONE NRG Mucus detection in urine sediment by light microscopy NEGATIVE NRG Complete urinalysis with reflex to culture NO NRG Complete blood count (CBC) with automated white blood cell (WBC) differential - 07/17/17 04:36 Blood leukocytes automated count (number/volume) 12.9 10*3/uL 4.3-11.0 Blood erythrocytes automated count (number/volume) 4.52 10*6/uL 4.35-5.85 Venous blood hemoglobin measurement (mass/volume) 12.1 g/dL 13.3-17.7 Blood hematocrit (volume fraction) 39 % 40-54 Automated erythrocyte mean corpuscular volume 87 [foz_us] 80-99 Automated erythrocyte mean corpuscular hemoglobin (mass per erythrocyte) 27 pg 25-34 Automated erythrocyte mean corpuscular hemoglobin concentration measurement ( mass/volume) 31 g/dL 32-36 Automated erythrocyte distribution width ratio 15.2 % 10.0-14.5 Automated blood platelet count (count/volume) 293 10*3/uL 130-400 Automated blood platelet mean volume measurement 9.5 [foz_us] 7.4-10.4 Automated blood neutrophils/100 leukocytes 78 % 42-75 Automated blood lymphocytes/100 leukocytes 12 % 12-44 Blood monocytes/100 leukocytes 10 % 0-12 Automated blood eosinophils/100 leukocytes 0 % 0-10 Automated blood basophils/100 leukocytes 0 % 0-10 Blood neutrophils automated count (number/volume) 10.1 10*3 1.8-7.8 Blood lymphocytes automated count (number/volume) 1.5 10*3 1.0-4.0 Blood monocytes automated count (number/volume) 1.2 10*3 0.0-1.0 Automated eosinophil count 0.0 10*3/uL 0.0-0.3 Automated blood basophil count (count/volume) 0.0 10*3/uL 0.0-0.1 Whole blood basic metabolic panel - 07/17/17 04:36 Serum or plasma sodium measurement (moles/volume) 136 mmol/L 135-145 Serum or plasma potassium measurement (moles/volume) 4.2 mmol/L 3.6-5.0 Serum or plasma chloride measurement (moles/volume) 103 mmol/L 98-107 Carbon dioxide 23 mmol/L 21-32 Serum or plasma anion gap determination (moles/volume) 10 mmol/L 5-14 Serum or plasma urea nitrogen measurement (mass/volume) 22 mg/dL 7-18 Serum or plasma creatinine measurement (mass/volume) 0.85 mg/dL 0.60-1.30 Serum or plasma urea nitrogen/creatinine mass ratio 26 NRG Serum or plasma creatinine measurement with calculation of estimated glomerular filtration rate > NRG Serum or plasma glucose measurement (mass/volume) 56 mg/dL 70-105 Serum or plasma calcium measurement (mass/volume) 9.2 mg/dL 8.5-10.1 Serum or plasma phosphate measurement (mass/volume) - 07/17/17 04:36 Serum or plasma phosphate measurement (mass/volume) 2.6 mg/dL 2.3-4.7 Magnesium - 07/17/17 04:36 Magnesium 2.1 mg/dL 1.8-2.4 Capillary blood glucose measurement by glucometer (mass/volume) - 07/17/17 05: 56 Capillary blood glucose measurement by glucometer (mass/volume) 85 mg/dL 70-110 Capillary blood glucose measurement by glucometer (mass/volume) - 07/17/17 06: 41 Capillary blood glucose measurement by glucometer (mass/volume) 90 mg/dL 70-110 Capillary blood glucose measurement by glucometer (mass/volume) - 07/17/17 11: 55 Capillary blood glucose measurement by glucometer (mass/volume) 70 mg/dL 70-110 Whole blood basic metabolic panel - 07/17/17 19:37 Serum or plasma sodium measurement (moles/volume) 135 mmol/L 135-145 Serum or plasma potassium measurement (moles/volume) 3.9 mmol/L 3.6-5.0 Serum or plasma chloride measurement (moles/volume) 102 mmol/L 98-107 Carbon dioxide 21 mmol/L 21-32 Serum or plasma anion gap determination (moles/volume) 12 mmol/L 5-14 Serum or plasma urea nitrogen measurement (mass/volume) 22 mg/dL 7-18 Serum or plasma creatinine measurement (mass/volume) 0.90 mg/dL 0.60-1.30 Serum or plasma urea nitrogen/creatinine mass ratio 24 NRG Serum or plasma creatinine measurement with calculation of estimated glomerular filtration rate > NRG Serum or plasma glucose measurement (mass/volume) 94 mg/dL 70-105 Serum or plasma calcium measurement (mass/volume) 8.4 mg/dL 8.5-10.1 Magnesium - 07/17/17 19:37 Magnesium 2.5 mg/dL 1.8-2.4 Capillary blood glucose measurement by glucometer (mass/volume) - 07/18/17 00: 05 Capillary blood glucose measurement by glucometer (mass/volume) 113 mg/dL 70-110 Capillary blood glucose measurement by glucometer (mass/volume) - 07/18/17 07: 28 Capillary blood glucose measurement by glucometer (mass/volume) 80 mg/dL 70-110 Complete blood count (CBC) with automated white blood cell (WBC) differential - 07/18/17 07:59 Blood leukocytes automated count (number/volume) 13.0 10*3/uL 4.3-11.0 Blood erythrocytes automated count (number/volume) 4.95 10*6/uL 4.35-5.85 Venous blood hemoglobin measurement (mass/volume) 13.4 g/dL 13.3-17.7 Blood hematocrit (volume fraction) 43 % 40-54 Automated erythrocyte mean corpuscular volume 87 [foz_us] 80-99 Automated erythrocyte mean corpuscular hemoglobin (mass per erythrocyte) 27 pg 25-34 Automated erythrocyte mean corpuscular hemoglobin concentration measurement ( mass/volume) 31 g/dL 32-36 Automated erythrocyte distribution width ratio 15.5 % 10.0-14.5 Automated blood platelet count (count/volume) 279 10*3/uL 130-400 Automated blood platelet mean volume measurement 9.4 [foz_us] 7.4-10.4 Automated blood neutrophils/100 leukocytes 70 % 42-75 Automated blood lymphocytes/100 leukocytes 17 % 12-44 Blood monocytes/100 leukocytes 12 % 0-12 Automated blood eosinophils/100 leukocytes 1 % 0-10 Automated blood basophils/100 leukocytes 0 % 0-10 Blood neutrophils automated count (number/volume) 9.1 10*3 1.8-7.8 Blood lymphocytes automated count (number/volume) 2.1 10*3 1.0-4.0 Blood monocytes automated count (number/volume) 1.6 10*3 0.0-1.0 Automated eosinophil count 0.1 10*3/uL 0.0-0.3 Automated blood basophil count (count/volume) 0.0 10*3/uL 0.0-0.1 Whole blood basic metabolic panel - 07/18/17 07:59 Serum or plasma sodium measurement (moles/volume) 136 mmol/L 135-145 Serum or plasma potassium measurement (moles/volume) 4.0 mmol/L 3.6-5.0 Serum or plasma chloride measurement (moles/volume) 105 mmol/L 98-107 Carbon dioxide 19 mmol/L 21-32 Serum or plasma anion gap determination (moles/volume) 12 mmol/L 5-14 Serum or plasma urea nitrogen measurement (mass/volume) 19 mg/dL 7-18 Serum or plasma creatinine measurement (mass/volume) 0.95 mg/dL 0.60-1.30 Serum or plasma urea nitrogen/creatinine mass ratio 20 NRG Serum or plasma creatinine measurement with calculation of estimated glomerular filtration rate > NRG Serum or plasma glucose measurement (mass/volume) 65 mg/dL 70-105 Serum or plasma calcium measurement (mass/volume) 9.3 mg/dL 8.5-10.1 Serum or plasma phosphate measurement (mass/volume) - 07/18/17 07:59 Serum or plasma phosphate measurement (mass/volume) 2.2 mg/dL 2.3-4.7 Magnesium - 07/18/17 07:59 Magnesium 2.3 mg/dL 1.8-2.4 Encounters ACCT No. Visit Date/Time Discharge Status Pt. Type Provider Facility Loc./Unit Complaint [id number] 08/23/2017 09:30:00 08/23/2017 23:59:59 CLS Preadmit MATHEUS BARNEY, SANDHYA Dove [facility] RAD OTHER AMNESIA R41.3 [id number] 08/19/2017 07:28:00 08/19/2017 08:00:00 DIS Emergency DISHA FOSTER MD [facility] ER WITHDRAWALS [id number] 07/24/2017 21:49:00 07/24/2017 23:57:00 DIS Emergency DANIELA NORMAN DO [facility] ER SUICIDAL IDEATION [id number] 07/24/2017 19:15:00 07/24/2017 20:34:00 DIS Emergency ANGELINE CASTRO MD [facility] ER WITHDRAWL [id number] 07/16/2017 20:53:00 07/16/2017 23:59:59 CLS Inpatient CHINO PICKARD DO [facility] 4TH METHADONE OD [id number] 07/16/2017 16:07:00 07/16/2017 17:15:00 DIS Emergency ANGELINE CASTRO MD [facility] ER OVERDOSE [id number] 02/19/2017 15:36:00 02/19/2017 17:02:00 DIS Emergency JUAN F TORRES COPYRIGHT CLERK [facility] ER FALL [id number] 11/17/2015 14:43:00 11/17/2015 15:40:00 DIS Emergency JUAN F TORRES COPYRIGHT CLERK [facility] ER RIGHT HIP INFECTION [id number] 12/21/2014 14:19:00 12/21/2014 23:59:59 CLS Outpatient RONNI EVANGELISTA COPYRIGHT CLERK [facility] RAD PAIN IN JOINT,PELVIC REGION THIGH [id number] 12/09/2014 14:53:00 12/09/2014 23:59:59 CLS Outpatient SANDHYA JARVIS MD [facility] RAD CLOSED POSTERIOR DISLOCATION OF HIP [id number] 01/14/2014 21:15:00 01/15/2014 18:00:00 DIS Inpatient SANDHYA JARVIS MD [facility] SURGICAL R HIP DISLOCATION [id number] 10/25/2013 15:31:00 10/25/2013 20:18:00 DIS Emergency JUAN F TORRES COPYRIGHT CLERK [facility] ER RT HIP DISLOCATION, FALL [id number] 2013 20:15:00 07/22/2013 13:40:00 DIS Inpatient SHWETA GARCIA MD [facility] SURGICAL RT HIP DISLOCATION [id number] 2013 19:56:00 2013 23:59:59 CLS Emergency [id number] 07/09/2013 21:38:00 07/10/2013 15:00:00 DIS Inpatient SHWETA GARCIA MD [facility] SURGICAL RECURRENT RT HIP DISLOCATION [id number] 06/26/2013 17:51:00 06/26/2013 22:15:00 DIS Emergency GITA GARCÍA MD [facility] ER FALL; R HIP PAIN [id number] 06/07/2013 15:19:00 06/07/2013 17:45:00 DIS Inpatient SANDHYA JARVIS MD [facility] ICU RT HIP PAIN [id number] 05/29/2013 00:20:00 05/29/2013 15:35:00 DIS [facility] [id number] 05/04/2013 19:12:00 05/04/2013 21:56:00 DIS Emergency TREVON DERAS MD [facility] ER DISLOACTED HIP [id number] 04/06/2013 00:33:00 04/06/2013 14:30:00 DIS Inpatient SHWETA GARCIA MD [facility] SURGICAL RIGHT HIP DISLOCATION [id number] 04/03/2013 17:35:00 04/03/2013 22:06:00 DIS Emergency DAINA HERNANDEZ [facility] ER R HIP DISLOCATION [id number] 03/04/2013 14:31:00 03/04/2013 16:28:00 DIS Outpatient SHERLEY WHITNEY MD [facility] RT HIP DISLOCATION [id number] 02/09/2013 15:38:00 Document Registration [id number] 05/15/2012 03:00:00 Document Registration
--- NOTE | 2018-01-24 13:45 | ED General ---
General Chief Complaint: Chest Wall/Rib Pain Stated Complaint: FALL/RIB PAIN Source of Information: Patient Exam Limitations: No Limitations History of Present Illness Date Seen by Provider: Jan 24, 2018 Time Seen by Provider: 13:42 Initial Comments To ER with complaints of right lateral lower rib pain. This began about 2 days ago after a fall. He struck the right lateral lower chest in doing so. He denies shortness of breath. He states the pain has gotten worse. Coincidentally , he is also out of his methadone. Timing/Duration: 1-2 Days Severity: Moderate Allergies and Home Medications Allergies Coded Allergies: NKANo Known Allergies (Unverified Allergy, Mild, 02/21/09) Home Medications Alendronate Sodium 70 Mg Tablet, 70 MG PO Sa, (Reported) LAST FILLED #5 05-27-17 Alprazolam 1 Mg Tablet, 1 MG PO QID PRN for ANXIETY, (Reported) Citalopram Hydrobromide 20 Mg Tablet, 20 MG PO DAILY, (Reported) Dextroamphetamine Sulfate 10 Mg Tablet, 30 MG PO DAILY, (Reported) LAST FILLED #90 05-27-17 Diphenoxylate HCl/Atropine 1 Each Tablet, 2 TAB PO TID PRN for DIARRHEA, ( Reported) Methadone Hcl 10 Mg Tablet, 50 MG PO TID, (Reported) LAST FILLED #450 05-27-17 TAKES 5 (10MG) TABLETS Pregabalin 50 Mg Capsule, 50 MG PO BID, (Reported) Patient Home Medication List Home Medication List Reviewed: Yes Constitutional: see HPI EENTM: see HPI Respiratory: no symptoms reported Cardiovascular: no symptoms reported Genitourinary: no symptoms reported Musculoskeletal: see HPI Skin: no symptoms reported Psychiatric/Neurological: No Symptoms Reported Hematologic/Lymphatic: No Symptoms Reported Immunological/Allergic: no symptoms reported Past Fxxydqz-Gftfky-Qcemlv Hx Patient Social History Alcohol Use: Denies Use Recreational Drug Use: No Smoking Status: Former Smoker Type Used: Cigarettes Former Smoker, Quit: Jul 14, 2017 2nd Hand Smoke Exposure: Yes Recent Foreign Travel: No Contact w/Someone Who Travel: No Recent Hopitalizations: No Immunizations Up To Date Tetanus Booster (TDap): Unknown PED Vaccines UTD: Yes Date of Influenza Vaccine: Oct 10, 2015 Seasonal Allergies Seasonal Allergies: No Surgeries History of Surgeries: Yes (Rt hip replaced 1994, 2014) Surgeries: Gallbladder, Orthopedic Respiratory History of Respiratory Disorde: Yes Respiratory Disorders: COPD Currently Using CPAP: No Currently Using BIPAP: No Cardiovascular History of Cardiac Disorders: No Neurological History of Neurological Disord: No Reproductive System Hx Reproductive Disorders: No Genitourinary History of Genitourinary Disor: Yes Genitourinary Disorders: Renal Failure Gastrointestinal History of Gastrointestinal Di: Yes Gastrointestinal Disorders: Pancreatitis Musculoskeletal History of Musculoskeletal Dis: Yes (AVASCULAR NECROSIS, HIP REPLACEMENT WITH MULTIPLE DISLOCATIONS) Musculoskeletal Disorders: Arthritis Endocrine History of Endocrine Disorders: No HEENT History of HEENT Disorders: No Loss of Vision: Denies Hearing Impairment: Denies Cancer History of Cancer: No Psychosocial History of Psychiatric Problem: Yes Behavioral Health Disorders: ADD/ADHD, Anxiety, Depression Integumentary History of Skin or Integumenta: No Blood Transfusions History of Blood Disorders: No Adverse Reaction to a Blood Tr: No Family Medical History Significant Family History: No Pertinent Family Hx Physical Exam Vital Signs Vital Signs - First Documented 01/24/18 13:36 Temp 98.0 Pulse 103 Resp 18 B/P (MAP) 100/74 (83) Pulse Ox 95 Capillary Refill : General Appearance: No Apparent Distress, WD/WN, Chronically ill (Appears much older than stated age) Eyes: Bilateral Eye Normal Inspection, Bilateral Eye PERRL, Bilateral Eye EOMI HEENT: PERRL/EOMI, TMs Normal Respiratory: Normal Breath Sounds, No Accessory Muscle Use, No Respiratory Distress, Other (Lungs sounds are normal but the right lateral chest wall is very tender to palpation. It is without crepitus erythema or ecchymosis. I will do a CT scan to evaluate both the liver and the ribs.) Cardiovascular: Regular Rate, Rhythm, Normal Peripheral Pulses Gastrointestinal: Normal Bowel Sounds, Non Tender, Soft Extremity: Normal Capillary Refill, Non Tender, No Calf Tenderness Neurologic/Psychiatric: Alert, Oriented x3, No Motor/Sensory Deficits Skin: Normal Color, Warm/Dry Patient Education: Explained Benefits Breath Sounds per Auscultation: Clear Heart Sounds per Auscultation: Regular Airway Exam: Mouth opens >2 fingers, Neck Full Range of Motion, Visulation of Uvula Sedation Adminstration Time: 2034 Re-examination Time: 2099 Progress/Results/Core Measures Suspected Sepsis SIRS Temperature: Pulse: Respiratory Rate: Blood Pressure / Mean: Results/Orders My Orders Orders - JUAN F TORRES APRN Ct Chest/Abdomen Wo (01/24/18 13:41) Cbc With Automated Diff (01/24/18 13:53) Basic Metabolic Panel (01/24/18 13:53) Saline Lock/Iv-Start (01/24/18 13:54) Ns Iv 1000 Ml (Sodium Chloride 0.9%) (01/24/18 14:00) Vital Signs/I&O Vital Sign - Last 12Hours 01/24/18 13:36 Temp 98.0 Pulse 103 Resp 18 B/P (MAP) 100/74 (83) Pulse Ox 95 Capillary Refill : Diagnostic Imaging Diagonstic Imaging: CT Comments NAME: GITA LUX [facility] REC#: [id number] PT STATUS: REG ER : 1950 PHYSICIAN: JUAN F TORRES APRN ADMIT DATE: 01/24/18/ER Draft Date of Exam:01/24/18 CT CHEST/ABDOMEN WO PROCEDURE: CT chest and abdomen without contrast. TECHNIQUE: Axial images were obtained from the thoracic inlet through the iliac crest without the administration of intravenous contrast. INDICATION: Fall, right axillary and chest wall pain. COMPARISON: The study compared with abdominal pelvic CT 02/21/2009. CHEST: There is no evidence for a lung contusion, pneumothorax or hemothorax. There is a heterogeneous air trapping and features of COPD with progressive subpleural scarring bilaterally, asymmetric, greater right than left, and lower lobe distribution greater than upper lobe distribution. There were no findings however felt suggestive for aspiration or jamal lung contusion. Callus formation from old healed right rib fracture deformities laterally at the sixth and seventh levels noted chronic subtle cortical irregularities of the right eighth rib laterally seen on image 59, suggestive of a nondisplaced fracture without healing, this is presumed recent. No other potential chest wall injury is found. There is no periaortic or mediastinal hemorrhage. There is no fluid in the pericardial sac. Coronary arterial atherosclerotic vascular calcifications noted. ABDOMEN: There is no abdominal free fluid, there is no free air. The unopacified liver appeared nonfocal and no perihepatic or subcapsular fluid collection. The abdominal bowel loops revealed no focal wall thickening. There was no evidence for a mesenteric hematoma. Left renal cortical cyst noted without hydronephrosis. There is no adrenal mass or hematoma. The pancreas is unremarkable. The biliary ducts nondilated. IMPRESSION: Progressive subpleural fibrotic changes in the lungs. No acute pulmonary parenchymal or pleural injury. A probable subtle nondisplaced right eighth rib fracture laterally is believed acute. There are additional convincingly old healed right rib deformities noted. No other potential acute abnormality. The abdominal portion of the study showed no acute finding. Dictated on workstation # [id number] Dict: 01/24/18 1402 Trans: 01/24/18 1427 [facility] [id number] Interpreted by: MOE ROMERO Electronically signed by: Departure Communication (Admissions) Progress Notes 1400 I did suggest we give IV fluids and a blood draw to check labs since he also states he doesn't feel well however the patient states "no I dont want that done" Impression Impression: Primary Impression: Right 8th rib fractur Disposition: HOME, SELF-CARE Condition: Stable Departure-Patient Inst. Decision time for Depature: 14:31 Referrals: SANDHYA JARVIS MD (PCP/Family) Primary Care Physician Patient Instructions: Rib Fracture (DC) Add. Discharge Instructions: 1. Pain medication as directed. Follow-up with your doctor on Friday for refill of your methadone. If you run out of hydrocodone before Friday use Tylenol and Motrin. Scripts Hydrocodone/Acetaminophen ([place] 5-325 Tablet) 1 Each Tablet 1 EACH PO Q6H Y for PAIN-MODERATE TO SEVERE, #10 TAB Prov: JUAN F TORRES APRN 01/24/18 JUAN F TORRES APRN Jan 24, 2018 13:45
[2018-01-24] MEDS ORDERED: NS IV 1000 ML 1,000 ML IV SCH (14:00)
--- NOTE | 2018-01-24 14:27 | Diagnostic Imaging Report ---
PROCEDURE: CT chest and abdomen without contrast. TECHNIQUE: Axial images were obtained from the thoracic inlet through the iliac crest without the administration of intravenous contrast. INDICATION: Fall, right axillary and chest wall pain. COMPARISON: The study compared with abdominal pelvic CT 02/21/2009. CHEST: There is no evidence for a lung contusion, pneumothorax or hemothorax. There is a heterogeneous air trapping and features of COPD with progressive subpleural scarring bilaterally, asymmetric, greater right than left, and lower lobe distribution greater than upper lobe distribution. There were no findings however felt suggestive for aspiration or jamal lung contusion. Callus formation from old healed right rib fracture deformities laterally at the sixth and seventh levels noted chronic subtle cortical irregularities of the right eighth rib laterally seen on image 59, suggestive of a nondisplaced fracture without healing, this is presumed recent. No other potential chest wall injury is found. There is no periaortic or mediastinal hemorrhage. There is no fluid in the pericardial sac. Coronary arterial atherosclerotic vascular calcifications noted. ABDOMEN: There is no abdominal free fluid, there is no free air. The unopacified liver appeared nonfocal and no perihepatic or subcapsular fluid collection. The abdominal bowel loops revealed no focal wall thickening. There was no evidence for a mesenteric hematoma. Left renal cortical cyst noted without hydronephrosis. There is no adrenal mass or hematoma. The pancreas is unremarkable. The biliary ducts nondilated. IMPRESSION: Progressive subpleural fibrotic changes in the lungs. No acute pulmonary parenchymal or pleural injury. A probable subtle nondisplaced right eighth rib fracture laterally is believed acute. There are additional convincingly old healed right rib deformities noted. No other potential acute abnormality. The abdominal portion of the study showed no acute finding. Dictated by: Dictated on workstation # [id number]
[2018-01-24] MEDS ORDERED: HYDR-757 PO (14:32)
[2018-01-24 14:47] VITALS: BP 104/70
== END 2018-01-24 14:42 | disposition home or self-care (01) ==
LOC: EDUNIT# 13:32 → ER 13:34
DX: S22.31XA Fracture of one rib, right side, initial encounter for closed fracture (principal); J44.9 Chronic obstructive pulmonary disease, unspecified; F90.9 Attention-deficit hyperactivity disorder, unspecified type; F41.9 Anxiety disorder, unspecified; F32.9 Major depressive disorder, single episode, unspecified; Z87.19 Personal history of other diseases of the digestive system; Z88.1 Allergy status to other antibiotic agents; Z87.891 Personal history of nicotine dependence; Z96.641 Presence of right artificial hip joint; Z91.14 Patient's other noncompliance with medication regimen; W01.10XA Fall on same level from slipping, tripping and stumbling with subsequent striking against unspecified object, initial encounter
CPT/HCPCS: 71250; 74150

== ENCOUNTER 2018-01-29 13:39 | Emergency (ER) | payer MEDICARE ==
[~2018-01-29] VITALS: Ht 170.2 cm; Wt 59.0 kg
[~2018-01-29 13:39] MED LIST changes: +HYDR-757 PO
--- NOTE | 2018-01-29 13:57 | ED Abdominal Pain ---
General Chief Complaint: Abdominal/GI Problems Stated Complaint: ABD PAIN Source of Information: Patient Exam Limitations: No Limitations History of Present Illness Date Seen by Provider: Jan 29, 2018 Time Seen by Provider: 13:55 Initial Comments To ER per EMS from home with reports of abdominal pain that began last night after eating all deli. He initially states he is not out of his methadone, he then states "you know what, now that she mention and I think I am out of my methadone" I advised that we should check labs and start IV to evaluate the cause of his abdominal pain which he refuses so he signs out AGAINST MEDICAL ADVICE. Timing/Duration: 1-2 Days Severity/Quality: Moderate Location: Generalized Abdomen Radiation: No Radiation Activities at Onset: None Allergies and Home Medications Allergies Coded Allergies: FRITZANo Known Allergies (Unverified Allergy, Mild, 02/21/09) Home Medications Alendronate Sodium 70 Mg Tablet, 70 MG PO Sa, (Reported) LAST FILLED #5 05-27-17 Alprazolam 1 Mg Tablet, 1 MG PO QID PRN for ANXIETY, (Reported) Citalopram Hydrobromide 20 Mg Tablet, 20 MG PO DAILY, (Reported) Dextroamphetamine Sulfate 10 Mg Tablet, 30 MG PO DAILY, (Reported) LAST FILLED #90 05-27-17 Diphenoxylate HCl/Atropine 1 Each Tablet, 2 TAB PO TID PRN for DIARRHEA, ( Reported) Hydrocodone/Acetaminophen 1 Each Tablet, 1 EACH PO Q6H PRN for PAIN-MODERATE TO SEVERE Prescribed by: JUAN F TORRES on 01/24/18 1432 Methadone Hcl 10 Mg Tablet, 50 MG PO TID, (Reported) LAST FILLED #450 05-27-17 TAKES 5 (10MG) TABLETS Pregabalin 50 Mg Capsule, 50 MG PO BID, (Reported) Patient Home Medication List Home Medication List Reviewed: Yes Review of Systems Constitutional: see HPI EENTM: No Symptoms Reported Respiratory: No Symptoms Reported Cardiovascular: No Symptoms Reported Gastrointestinal: See HPI, Abdominal Pain Genitourinary: No Symptoms Reported Musculoskeletal: no symptoms reported Skin: no symptoms reported Psychiatric/Neurological: No Symptoms Reported Endocrine: No Symptoms Reported Past Huppvsq-Grrmts-Fmmjfi Hx Patient Social History Type Used: Cigarettes Former Smoker, Quit: Jul 14, 2017 2nd Hand Smoke Exposure: Yes Recent Hopitalizations: No Immunizations Up To Date Tetanus Booster (TDap): Unknown PED Vaccines UTD: Yes Date of Influenza Vaccine: Oct 10, 2015 Seasonal Allergies Seasonal Allergies: No Surgeries History of Surgeries: Yes (Rt hip replaced 2014) Surgeries: Gallbladder, Orthopedic Respiratory History of Respiratory Disorde: Yes Respiratory Disorders: COPD Currently Using CPAP: No Currently Using BIPAP: No Cardiovascular History of Cardiac Disorders: No Neurological History of Neurological Disord: No Reproductive System Hx Reproductive Disorders: No Genitourinary History of Genitourinary Disor: Yes Genitourinary Disorders: Renal Failure Gastrointestinal History of Gastrointestinal Di: Yes Gastrointestinal Disorders: Pancreatitis Musculoskeletal History of Musculoskeletal Dis: Yes (AVASCULAR NECROSIS, HIP REPLACEMENT WITH MULTIPLE DISLOCATIONS) Musculoskeletal Disorders: Arthritis Endocrine History of Endocrine Disorders: No HEENT History of HEENT Disorders: No Loss of Vision: Denies Hearing Impairment: Denies Cancer History of Cancer: No Psychosocial History of Psychiatric Problem: Yes Behavioral Health Disorders: ADD/ADHD, Anxiety, Depression Integumentary History of Skin or Integumenta: No Blood Transfusions History of Blood Disorders: No Adverse Reaction to a Blood Tr: No Family Medical History Significant Family History: No Pertinent Family Hx Physical Exam Vital Signs Capillary Refill : General Appearance: WD/WN, no apparent distress, other (chronically ill) HEENT: PERRL/EOMI, normal ENT inspection Neck: non-tender, full range of motion Respiratory: no respiratory distress, no accessory muscle use Cardiovascular: regular rate, rhythm, no murmur Gastrointestinal: normal bowel sounds, soft, tenderness Extremities: normal range of motion, non-tender, normal inspection Neurologic/Psychiatric: alert, normal mood/affect, oriented x 3 Skin: normal color, warm/dry Patient Education: Explained Benefits Breath Sounds per Auscultation: Clear Heart Sounds per Auscultation: Regular Airway Exam: Mouth opens >2 fingers, Neck Full Range of Motion, Visulation of Uvula Sedation Adminstration Time: 2034 Re-examination Time: 2099 Departure Communication (Admissions) Progress Notes able to ambulatre out of ER Impression Impression: Primary Impression: Abdominal pain Disposition: AGAINST MEDICAL ADVICE Condition: Against Medical Advice Departure-Patient Inst. Referrals: SANDHYA JARVIS MD (PCP/Family) Primary Care Physician JUAN F TORRES APRN Jan 29, 2018 13:57
[2018-01-29 14:05] VITALS: BP 133/61
[2018-01-29] MEDS ORDERED: SULF1TAB35 PO (16:53)
[2018-01-29] MEDS ORDERED: METR500T PO (16:53)
[2018-01-29] MEDS ORDERED: HYOS0.1283 SL (16:54)
[2018-01-29] MEDS ORDERED: SUCR1ORA5 PO (16:54)
== END 2018-01-29 14:05 | disposition left against medical advice (07) ==
LOC: EDUNIT# 13:39 → ER 13:40
DX: R10.84 Generalized abdominal pain (principal); J44.9 Chronic obstructive pulmonary disease, unspecified; F90.9 Attention-deficit hyperactivity disorder, unspecified type; F41.9 Anxiety disorder, unspecified; F32.9 Major depressive disorder, single episode, unspecified; Z87.19 Personal history of other diseases of the digestive system; Z87.891 Personal history of nicotine dependence; Z96.641 Presence of right artificial hip joint
CPT/HCPCS: 99281

== ENCOUNTER 2018-01-29 14:07 | Emergency (ER) | payer MEDICARE ==
[~2018-01-29] VITALS: Ht 170.2 cm; Wt 59.0 kg
[2018-01-29] MEDS ORDERED: LACTATED RINGERS 1,000 ML IV SCH (15:15)
[2018-01-29 15:21] LABS: BASOPHILS % (AUTO) 0 % (0-10); EOSINOPHILS # (AUTO) 0.2 10^3/uL (0.0-0.3); EOSINOPHILS % (AUTO) 1 % (0-10); HEMATOCRIT 40 % (40-54); HEMOGLOBIN 12.8 G/DL (13.3-17.7); LYMPHOCYTES # (AUTO) 1.5 X 10^3 (1.0-4.0); LYMPHOCYTES % (AUTO) 10 % (12-44); MEAN CORPUSCULAR HEMOGLOBIN 27 PG (25-34); MEAN CORPUSCULAR HGB CONC 32 G/DL (32-36); MEAN CORPUSCULAR VOLUME 83 FL (80-99); MEAN PLATELET VOLUME 9.7 FL (7.4-10.4); MONOCYTES # (AUTO) 1.4 X 10^3 (0.0-1.0); MONOCYTES % (AUTO) 9 % (0-12); NEUTROPHILS # (AUTO) 12.5 X 10^3 (1.8-7.8); NEUTROPHILS % (AUTO) 80 % (42-75); PLATELET COUNT 449 10^3/uL (130-400); RED BLOOD COUNT 4.74 10^6/uL (4.35-5.85); RED CELL DISTRIBUTION WIDTH 16.6 % (10.0-14.5); WHITE BLOOD COUNT 15.7 10^3/uL (4.3-11.0)
--- NOTE | 2018-01-29 15:23 | ED Abdominal Pain ---
General Chief Complaint: Abdominal/GI Problems Stated Complaint: ABD PAIN Nursing Triage Note: C/O ABD PAIN THAT STARTED LAST NIGHT. PT. DID NOT TAKE MEDS FOR THE PAIN. STATES THAT HE'S NEVER FELT THIS BAD. Sepsis Screen: No Definite Risk Source of Information: Patient Exam Limitations: No Limitations History of Present Illness Date Seen by Provider: Jan 29, 2018 Time Seen by Provider: 15:21 Initial Comments To ER per EMS from home with reports of diffuse abdominal pain that started last night after eating at the [employer]. No fevers or chills. No nausea vomiting or diarrhea. He states his only home medication is methadone and he assures me he is not out of it. Timing/Duration: 1-2 Days Severity/Quality: Moderate Location: Generalized Abdomen Radiation: No Radiation Associated Symptoms: Nausea/Vomiting Allergies and Home Medications Allergies Coded Allergies: NKANo Known Allergies (Unverified Allergy, Mild, 02/21/09) Home Medications Alendronate Sodium 70 Mg Tablet, 70 MG PO Sa, (Reported) LAST FILLED #5 05-27-17 Alprazolam 1 Mg Tablet, 1 MG PO QID PRN for ANXIETY, (Reported) Citalopram Hydrobromide 20 Mg Tablet, 20 MG PO DAILY, (Reported) Dextroamphetamine Sulfate 10 Mg Tablet, 30 MG PO DAILY, (Reported) LAST FILLED #90 05-27-17 Diphenoxylate HCl/Atropine 1 Each Tablet, 2 TAB PO TID PRN for DIARRHEA, ( Reported) Hydrocodone/Acetaminophen 1 Each Tablet, 1 EACH PO Q6H PRN for PAIN-MODERATE TO SEVERE Prescribed by: JUAN F TORRES on 01/24/18 1432 Hyoscyamine Sulfate 0.125 Mg Tab.subl, 0.125 MG SL Q6H PRN for CRAMPS Prescribed by: JUAN F TORRES on 01/29/18 1654 Methadone Hcl 10 Mg Tablet, 50 MG PO TID, (Reported) LAST FILLED #450 05-27-17 TAKES 5 (10MG) TABLETS Metronidazole 500 Mg Tablet, 500 MG PO TID Prescribed by: JUAN F TORRES on 01/29/18 1653 Pregabalin 50 Mg Capsule, 50 MG PO BID, (Reported) Sucralfate 1 Gm/10 Ml Oral.susp, 1 GM PO ACHS Prescribed by: JUAN F TORRES on 01/29/18 165 Sulfamethoxazole/Trimethoprim 1 Each Tablet, 1 EACH PO BID Prescribed by: JUAN F TORRES on 01/29/18 1540 Patient Home Medication List Home Medication List Reviewed: Yes Review of Systems Constitutional: see HPI EENTM: No Symptoms Reported Respiratory: No Symptoms Reported Cardiovascular: No Symptoms Reported Gastrointestinal: See HPI, Abdominal Pain, Denies Constipated, Denies Diarrhea , Denies Nausea Genitourinary: No Symptoms Reported Musculoskeletal: no symptoms reported Past Nmbevsd-Mccibt-Fnccsx Hx Patient Social History Alcohol Use: Denies Use Recreational Drug Use: No Smoking Status: Current Everyday Smoker Type Used: Cigarettes Former Smoker, Quit: Jul 14, 2017 2nd Hand Smoke Exposure: Yes Recent Foreign Travel: No Contact w/Someone Who Travel: No Recent Infectious Disease Expo: No Recent Hopitalizations: No Immunizations Up To Date Tetanus Booster (TDap): Unknown PED Vaccines UTD: Yes Date of Influenza Vaccine: Oct 10, 2015 Seasonal Allergies Seasonal Allergies: No Surgeries History of Surgeries: Yes (Rt hip replaced 2014) Surgeries: Gallbladder, Orthopedic Respiratory History of Respiratory Disorde: Yes Respiratory Disorders: COPD Currently Using CPAP: No Currently Using BIPAP: No Cardiovascular History of Cardiac Disorders: No Neurological History of Neurological Disord: No Reproductive System Hx Reproductive Disorders: No Genitourinary History of Genitourinary Disor: Yes Genitourinary Disorders: Renal Failure Gastrointestinal History of Gastrointestinal Di: Yes Gastrointestinal Disorders: Pancreatitis Musculoskeletal History of Musculoskeletal Dis: Yes (AVASCULAR NECROSIS, HIP REPLACEMENT WITH MULTIPLE DISLOCATIONS) Musculoskeletal Disorders: Arthritis Endocrine History of Endocrine Disorders: No HEENT History of HEENT Disorders: No Loss of Vision: Denies Hearing Impairment: Denies Cancer History of Cancer: No Psychosocial History of Psychiatric Problem: Yes Behavioral Health Disorders: ADD/ADHD, Anxiety, Depression Integumentary History of Skin or Integumenta: No Blood Transfusions History of Blood Disorders: No Adverse Reaction to a Blood Tr: No Family Medical History Significant Family History: No Pertinent Family Hx Physical Exam Vital Signs VS - Last 72 Hours, by Label 01/29/18 01/29/18 14:27 17:16 Temp 96.7 96.7 Pulse 93 93 Resp 20 20 B/P (MAP) 98/81 (87) 100/78 (87) Pulse Ox 96 O2 Delivery Room Air Capillary Refill : Less Than 3 Seconds General Appearance: WD/WN, no apparent distress, thin (cachectic appearing), other (appears very sedate, does fall asleep during conversation. Assures me that he has not taken any medications other than his prescribed methadone.) HEENT: PERRL/EOMI, normal ENT inspection Neck: non-tender, full range of motion Respiratory: normal breath sounds, no respiratory distress, no accessory muscle use Cardiovascular: regular rate, rhythm, no murmur Gastrointestinal: normal bowel sounds, soft, tenderness Extremities: normal range of motion, non-tender Neurologic/Psychiatric: alert, normal mood/affect, oriented x 3 Skin: normal color, warm/dry Patient Education: Explained Benefits Breath Sounds per Auscultation: Clear Heart Sounds per Auscultation: Regular Airway Exam: Mouth opens >2 fingers, Neck Full Range of Motion, Visulation of Uvula Sedation Adminstration Time: 2034 Re-examination Time: 2099 Progress/Results/Core Measures Results/Orders Lab Results Laboratory Tests Test 01/29/18 15:09 Range/Units White Blood Count 15.7 H 4.3-11.0 10^3/uL Red Blood Count 4.74 4.35-5.85 10^6/uL Hemoglobin 12.8 L 13.3-17.7 G/DL Hematocrit 40 40-54 % Mean Corpuscular Volume 83 80-99 FL Mean Corpuscular Hemoglobin 27 25-34 PG Mean Corpuscular Hemoglobin Concent 32 32-36 G/DL Red Cell Distribution Width 16.6 H 10.0-14.5 % Platelet Count 449 H 130-400 10^3/uL Mean Platelet Volume 9.7 7.4-10.4 FL Neutrophils (%) (Auto) 80 H 42-75 % Lymphocytes (%) (Auto) 10 L 12-44 % Monocytes (%) (Auto) 9 0-12 % Eosinophils (%) (Auto) 1 0-10 % Basophils (%) (Auto) 0 0-10 % Neutrophils # (Auto) 12.5 H 1.8-7.8 X 10^3 Lymphocytes # (Auto) 1.5 1.0-4.0 X 10^3 Monocytes # (Auto) 1.4 H 0.0-1.0 X 10^3 Eosinophils # (Auto) 0.2 0.0-0.3 10^3/uL Basophils # (Auto) 0.0 0.0-0.1 10^3/uL Neutrophils % (Manual) 80 % Lymphocytes % (Manual) 10 % Monocytes % (Manual) 9 % Eosinophils % (Manual) 0 % Basophils % (Manual) 0 % Band Neutrophils 1 % Blood Morphology Comment NORMAL Sodium Level 141 135-145 MMOL/L Potassium Level 4.1 3.6-5.0 MMOL/L Chloride Level 108 H 98-107 MMOL/L Carbon Dioxide Level 23 21-32 MMOL/L Anion Gap 10 5-14 MMOL/L Blood Urea Nitrogen 28 H 7-18 MG/DL Creatinine 1.20 0.60-1.30 MG/DL Estimat Glomerular Filtration Rate 60 BUN/Creatinine Ratio 23 Glucose Level 98 70-105 MG/DL Calcium Level 9.5 8.5-10.1 MG/DL Total Bilirubin 0.6 0.1-1.0 MG/DL Aspartate Amino Transf (AST/SGOT) 28 5-34 U/L Alanine Aminotransferase (ALT/SGPT) 13 0-55 U/L Alkaline Phosphatase 87 40-136 U/L Total Protein 7.6 6.4-8.2 GM/DL Albumin 3.7 3.2-4.5 GM/DL Lipase 25 8-78 U/L Serum Alcohol < 10 <10 MG/DL My Orders Orders - JUAN F TORRES RESOURCE PARAPROFESSIONAL Cbc With Automated Diff (01/29/18 15:10) Comprehensive Metabolic Panel (01/29/18 15:10) Lipase (01/29/18 15:10) Alcohol (01/29/18 15:10) Saline Lock/Iv-Start (01/29/18 15:10) Lactated Ringers (Lr 1000 Ml Iv Solution (01/29/18 15:15) Ct Abdomen/Pelvis Wo (01/29/18 15:10) Manual Differential (01/29/18 15:09) Vital Signs/I&O Vital Sign - Last 12Hours 01/29/18 01/29/18 14:27 17:16 Temp 96.7 96.7 Pulse 93 93 Resp 20 20 B/P (MAP) 98/81 (87) 100/78 (87) Pulse Ox 96 O2 Delivery Room Air Blood Pressure Mean: 87 Progress Note : Time: 17:09 Progress Note Patient refuses to provide urine sample and wishes to leave at this time. ECG Initial ECG Impression Date: Jan 29, 2018 Diagnostic Imaging Diagonstic Imaging: CT Comments NAME: [facility] REC#: [id number] PT STATUS: REG ER : 1950 PHYSICIAN: JUAN F TORRES APRN ADMIT DATE: 01/29/18/ER Draft Date of Exam:01/29/18 CT ABDOMEN/PELVIS WO INDICATION: Abdominal pain. EXAMINATION: CT of the abdomen and pelvis was obtained without IV contrast. COMPARISON: 01/24/2018. FINDINGS: Visualized portions of the lung bases demonstrate fibrotic changes similar to the prior study. There is no pleural fluid or free air. There are right sided posterior rib fractures of the 10th and 11th ribs, which show increased displacement compared to the previous study. There are old left-sided rib fractures, inferiorly. The liver shows no focal lesions. The spleen, adrenals and pancreas appear unremarkable. The kidneys, bilaterally, appear normal. Compared to the previous study, there appears to be increasing thickening of the distal stomach and proximal duodenum. This may represent inflammatory process or duodenal hematoma. Correlate with clinical history. The retroperitoneum is otherwise unremarkable. There is no ascites. The remaining bowel loops appear grossly unremarkable. There is a right hip prosthesis. There are healed fractures of the inferior and superior pubic rami on both sides. There are sclerotic changes in the left femoral head suspicious for avascular necrosis. There are also chronic old bilateral sacral fractures. IMPRESSION: Compared to 01/24/2018, there is increasing thickening of distal stomach in the peripyloric region as well as in the proximal duodenum down the level of third portion duodenum. The finds may represent distal gastritis and duodenitis, or duodenal hematoma if the patient has had significant trauma, correlate clinically. Consider endoscopy as clinically warranted. There are right-sided rib fractures of the 10th and 11th ribs which show increased displacement compared to the prior study. There are old left-sided rib fractures. There are chronic changes in the bony pelvis, as described above, with old fractures and possibly avascular necrosis of the left femoral head. There is a right hip prosthesis. Dictated on workstation # [id number] Dict: 01/29/18 1617 Trans: 01/29/18 1632 [facility] [id number] Interpreted by: DOMENIC NEAL MD Electronically signed by: Departure Impression Impression: Primary Impression: Duodenitis Disposition: 01 HOME, SELF-CARE Condition: Stable Departure-Patient Inst. Decision time for Depature: 16:52 Referrals: AKANKSHA GAMA MD (PCP/Family) Primary Care Physician Patient Instructions: NO INSTRUCTIONS GIVEN Add. Discharge Instructions: 1. Return to ER for any concerns 2. Medication as directed 3. Follow up with YOUR DOCTOR TOMORROW 4. Antibiotics as directed All discharge instructions reviewed with patient and/or family. Voiced understanding. Scripts Hyoscyamine Sulfate (Levsin-Sl) 0.125 Mg Tab.subl 0.125 MG SL Q6H Y for CRAMPS, #10 TAB Prov: JUAN F TORRES APRN 01/29/18 Sucralfate (Carafate) 1 Gm/10 Ml Oral.susp 1 GM PO ACHS, #400 ML Prov: JUAN F TORRES APRN 01/29/18 Sulfamethoxazole/Trimethoprim (Bactrim Ds Tablet) 1 Each Tablet 1 EACH PO BID, #14 TAB Prov: JUAN F TORRES APRN 01/29/18 Metronidazole (Flagyl) 500 Mg Tablet 500 MG PO TID, #21 TAB Prov: JUAN F TORRES APRN 01/29/18 JUAN F TORRES APRN Jan 29, 2018 15:23
[2018-01-29 15:45] LABS: ALANINE AMINOTRANSFERASE 13 U/L (0-55); ALBUMIN 3.7 GM/DL (3.2-4.5); ALKALINE PHOSPHATASE 87 U/L (40-136); BILIRUBIN,TOTAL 0.6 MG/DL (0.1-1.0); BUN/CREATININE RATIO 23; CALCIUM 9.5 MG/DL (8.5-10.1); CARBON DIOXIDE 23 MMOL/L (21-32); CHLORIDE 108 MMOL/L (98-107); GFR ESTIMATED 60; GLUCOSE 98 MG/DL (70-105); LIPASE 25 U/L (8-78); POTASSIUM 4.1 MMOL/L (3.6-5.0); SODIUM 141 MMOL/L (135-145); TOTAL PROTEIN 7.6 GM/DL (6.4-8.2)
[2018-01-29 15:56] LABS: BAND NEUTROPHILS 1 %; BASOPHILS % (MANUAL) 0 %; EOSINOPHILS % (MANUAL) 0 %; LYMPHOCYTES % (MANUAL) 10 %; MONOCYTES % (MANUAL) 9 %; NEUTROPHILS % (MANUAL) 80 %; RBC MORPH NORMAL
--- NOTE | 2018-01-29 16:33 | Diagnostic Imaging Report ---
INDICATION: Abdominal pain. EXAMINATION: CT of the abdomen and pelvis was obtained without IV contrast. COMPARISON: 01/24/2018. FINDINGS: Visualized portions of the lung bases demonstrate fibrotic changes similar to the prior study. There is no pleural fluid or free air. There are right sided posterior rib fractures of the 10th and 11th ribs, which show increased displacement compared to the previous study. There are old left-sided rib fractures, inferiorly. The liver shows no focal lesions. The spleen, adrenals and pancreas appear unremarkable. The kidneys, bilaterally, appear normal. Compared to the previous study, there appears to be increasing thickening of the distal stomach and proximal duodenum. This may represent inflammatory process or duodenal hematoma. Correlate with clinical history. The retroperitoneum is otherwise unremarkable. There is no ascites. The remaining bowel loops appear grossly unremarkable. There is a right hip prosthesis. There are healed fractures of the inferior and superior pubic rami on both sides. There are sclerotic changes in the left femoral head suspicious for avascular necrosis. There are also chronic old bilateral sacral fractures. IMPRESSION: Compared to 01/24/2018, there is increasing thickening of distal stomach in the peripyloric region as well as in the proximal duodenum down the level of third portion duodenum. The finds may represent distal gastritis and duodenitis, or duodenal hematoma if the patient has had significant trauma, correlate clinically. Consider endoscopy as clinically warranted. There are right-sided rib fractures of the 10th and 11th ribs which show increased displacement compared to the prior study. There are old left-sided rib fractures. There are chronic changes in the bony pelvis, as described above, with old fractures and possibly avascular necrosis of the left femoral head. There is a right hip prosthesis. Dictated by: Dictated on workstation # [id number]
[2018-01-29] MEDS ORDERED: SULF1TAB35 PO (16:53)
[2018-01-29] MEDS ORDERED: METR500T PO (16:53)
[2018-01-29] MEDS ORDERED: SUCR1ORA5 PO (16:54)
[2018-01-29] MEDS ORDERED: HYOS0.1283 SL (16:54)
[2018-01-29 17:16] VITALS: BP 100/78
== END 2018-01-29 17:16 | disposition home or self-care (01) ==
LOC: EDUNIT# 14:07 → ER 14:09
DX: K29.80 Duodenitis without bleeding (principal); J44.9 Chronic obstructive pulmonary disease, unspecified; F90.9 Attention-deficit hyperactivity disorder, unspecified type; F41.9 Anxiety disorder, unspecified; F31.9 Bipolar disorder, unspecified; F17.210 Nicotine dependence, cigarettes, uncomplicated; Z96.641 Presence of right artificial hip joint; Z87.19 Personal history of other diseases of the digestive system; Z88.1 Allergy status to other antibiotic agents
CPT/HCPCS: 36415; 74176; 80053; 80320; 83690; 85007; 85027; 96360

== ENCOUNTER 2018-01-31 03:06 | Emergency (ER) | payer MEDICARE ==
[~2018-01-31] VITALS: Ht 170.2 cm; Wt 59.0 kg
[~2018-01-31 03:06] MED LIST changes: +HYOS0.1283 SL; +METR500T PO; +SUCR1ORA5 PO
[2018-01-31] MEDS ORDERED: NS IV 1000 ML 1,000 ML IV SCH (03:11)
--- OUTSIDE RECORDS SUMMARY | 2018-01-31 03:11 | XMS REPORT | Clinical Summary ---
Author Author [facility] Organization [facility] Address Unknown Phone Unavailable Care Team Providers Care Route Carrier Name Role Phone Dat Batista MD Unavailable Mike Valencia MD PCP Mojgan Fink MD Unavailable Katelyn Padilla APRN Unavailable Unavailable Source Comments Some departments are not documenting in the electronic medical record. If you do not see the information that you expected, contact Release of Information in the Health Information Management department at [phone] for further assistance in locating additional records.[facility] Allergies No Known Allergies Current Medications [...]
[2018-01-31] MEDS ORDERED: fentaNYL INJECTION 100 MCG/2 ML AMP IVP ONE (03:15)
[2018-01-31] MEDS ORDERED: oxyCODONE/APAP 5/325MG (PERCOCET 5) TABLET PO ONE (03:45)
--- NOTE | 2018-01-31 03:51 | ED Abdominal Pain ---
General Chief Complaint: Abdominal/GI Problems Stated Complaint: SEVERE ABD PAIN Nursing Triage Note: abdominal pain, constipation Sepsis Screen: No Definite Risk Source of Information: Patient Exam Limitations: No Limitations History of Present Illness Date Seen by Provider: Jan 31, 2018 Time Seen by Provider: 03:08 Initial Comments This 67-year-old man presents to the emergency room via EMS complaining of right flank and abdominal pain for the past several days. He has not been eating or drinking well. He was seen on January 24 for pain related to a fall and he was noted to have an eighth rib fracture. He stated he was out of his methadone and was prescribed a few hydrocodone by JuanF Torres at that time. Patient was seen again on January 29 as stated again he was out of his methadone. He refused treatment and the left AMA. He was seen a second time by Jaun F on January 29 this time stating he was not out of his methadone. Additional imaging was performed and multiple rib fractures were noted along with duodenitis. Prescriptions were provided. Patient states pain has not improved. He denies any vomiting, diarrhea, cough, or fever. Allergies and Home Medications Allergies Coded Allergies: FRITZANo Known Allergies (Unverified Allergy, Mild, 02/21/09) Home Medications Alendronate Sodium 70 Mg Tablet, 70 MG PO Sa, (Reported) LAST FILLED #5 05-27-17 Alprazolam 1 Mg Tablet, 1 MG PO QID PRN for ANXIETY, (Reported) Citalopram Hydrobromide 20 Mg Tablet, 20 MG PO DAILY, (Reported) Dextroamphetamine Sulfate 10 Mg Tablet, 30 MG PO DAILY, (Reported) LAST FILLED #90 05-27-17 Diphenoxylate HCl/Atropine 1 Each Tablet, 2 TAB PO TID PRN for DIARRHEA, ( Reported) Hydrocodone/Acetaminophen 1 Each Tablet, 1 EACH PO Q6H PRN for PAIN-MODERATE TO SEVERE Prescribed by: JUAN F TORRES on 01/24/18 1432 Hyoscyamine Sulfate 0.125 Mg Tab.subl, 0.125 MG SL Q6H PRN for CRAMPS Prescribed by: JUAN F TORRES on 01/29/18 1654 Methadone Hcl 10 Mg Tablet, 50 MG PO TID, (Reported) LAST FILLED #450 05-27-17 TAKES 5 (10MG) TABLETS Metronidazole 500 Mg Tablet, 500 MG PO TID Prescribed by: JUAN F TORRES on 01/29/181652 Pregabalin 50 Mg Capsule, 50 MG PO BID, (Reported) Sucralfate 1 Gm/10 Ml Oral.susp, 1 GM PO ACHS Prescribed by: JUAN F TORRES on 01/29/181653 Sulfamethoxazole/Trimethoprim 1 Each Tablet, 1 EACH PO BID Prescribed by: JUAN F TORRES on 01/29/181652 Patient Home Medication List Home Medication List Reviewed: Yes Review of Systems Constitutional: no symptoms reported EENTM: No Symptoms Reported Respiratory: No Symptoms Reported Cardiovascular: No Symptoms Reported Gastrointestinal: See HPI Genitourinary: No Symptoms Reported Musculoskeletal: see HPI Skin: no symptoms reported Psychiatric/Neurological: Other (slightly agitated) Endocrine: No Symptoms Reported Hematologic/Lymphatic: No Symptoms Reported Past Bhqruqf-Nssepa-Xptwqs Hx Patient Social History Alcohol Use: Denies Use Recreational Drug Use: No Smoking Status: Current Everyday Smoker Type Used: Cigarettes Former Smoker, Quit: Jul 14, 2017 2nd Hand Smoke Exposure: Yes Recent Foreign Travel: No Contact w/Someone Who Travel: No Recent Infectious Disease Expo: No Recent Hopitalizations: No Immunizations Up To Date Tetanus Booster (TDap): Unknown PED Vaccines UTD: Yes Date of Influenza Vaccine: Oct 10, 2015 Seasonal Allergies Seasonal Allergies: No Surgeries History of Surgeries: Yes (Rt hip replaced 2014) Surgeries: Gallbladder, Orthopedic Respiratory History of Respiratory Disorde: Yes Respiratory Disorders: COPD Currently Using CPAP: No Currently Using BIPAP: No Cardiovascular History of Cardiac Disorders: No Neurological History of Neurological Disord: No Reproductive System Hx Reproductive Disorders: No Genitourinary History of Genitourinary Disor: Yes Genitourinary Disorders: Renal Failure Gastrointestinal History of Gastrointestinal Di: Yes Gastrointestinal Disorders: Pancreatitis Musculoskeletal History of Musculoskeletal Dis: Yes (AVASCULAR NECROSIS, HIP REPLACEMENT WITH MULTIPLE DISLOCATIONS) Musculoskeletal Disorders: Arthritis Endocrine History of Endocrine Disorders: No HEENT History of HEENT Disorders: No Loss of Vision: Denies Hearing Impairment: Denies Cancer History of Cancer: No Psychosocial History of Psychiatric Problem: Yes Behavioral Health Disorders: ADD/ADHD, Anxiety, Depression Integumentary History of Skin or Integumenta: No Blood Transfusions History of Blood Disorders: No Adverse Reaction to a Blood Tr: No Family Medical History Significant Family History: No Pertinent Family Hx Physical Exam Vital Signs VS - Last 72 Hours, by Label 01/31/18 03:07 Temp 96.6 Pulse 68 Resp 18 B/P (MAP) 132/73 (92) Pulse Ox 95 O2 Delivery Room Air Capillary Refill : Less Than 3 Seconds General Appearance: WD/WN, mild distress HEENT: PERRL/EOMI, normal ENT inspection, other (oropharynx somewhat dry) Neck: normal inspection Respiratory: lungs clear, normal breath sounds, no respiratory distress, no accessory muscle use Cardiovascular: regular rate, rhythm, no edema, no murmur Gastrointestinal: normal bowel sounds, soft, tenderness (right flank) Extremities: normal inspection, no pedal edema 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, alert, other (tremors) Skin: normal color, warm/dry Patient Education: Explained Benefits Breath Sounds per Auscultation: Clear Heart Sounds per Auscultation: Regular Airway Exam: Mouth opens >2 fingers, Neck Full Range of Motion, Visulation of Uvula Sedation Adminstration Time: 2034 Re-examination Time: 2099 Progress/Results/Core Measures Results/Orders My Orders Orders - DISHA FOSTER MD Cbc With Automated Diff (01/31/18 03:11) Comprehensive Metabolic Panel (01/31/18 03:11) Lipase (01/31/18 03:11) Ua Culture If Indicated (01/31/18 03:11) Saline Lock/Iv-Start (01/31/18 03:11) Ns Iv 1000 Ml (Sodium Chloride 0.9%) (01/31/18 03:11) Fentanyl Injection (Sublimaze Injection (01/31/18 03:15) Oxycodone/Apap 5/325mg Tablet (Percocet (01/31/18 03:45) Vital Signs/I&O Vital Sign - Last 12Hours 01/31/18 03:07 Temp 96.6 Pulse 68 Resp 18 B/P (MAP) 132/73 (92) Pulse Ox 95 O2 Delivery Room Air Blood Pressure Mean: 92 Progress Note : Time: 03:46 Progress Note Patient was seen and examined. Labs were ordered and fentanyl was ordered for pain. An IV was placed in the right hand by nursing staff. Before blood could even be drawn patient demanded that that the IV be removed. He demanded that the nurse remove the IV or he would remove it himself. I discussed need for workup with the patient. He declines any further evaluation. In particular, he refuses any IVs or injections. Since patient was alert, conversant, and had stable vital signs, he was allowed to be discharged without further workup. He is possibly withdrawing from narcotics. He states he has not used methadone in about a week. His filling record notes that he filled 300 tablets of methadone (50 day supply) on January 06. He states he has no idea what has happened to these pills. He also does not know what has happened to the hydrocodone prescribed by Juan F Torres that he filled on January 25. He did not fill the medications prescribed on January 29 for duodenitis. He is requesting that we treat his pain and discharge him. Percocet 5 mg was ordered to be given prior to discharge. Patient ambulated to discharge without difficulty. He was strongly encouraged to fill the medications prescribed on January 29. Departure Impression Impression: Primary Impression: Right flank pain Additional Impressions: Right rib fracture Qualified Codes: S22.41XD - Multiple fractures of ribs, right side, subsequent encounter for fracture with routine healing Noncompliance Disposition: 01 HOME, SELF-CARE Condition: Improved Departure-Patient Inst. Decision time for Depature: 03:50 Referrals: AKANKSHA GAMA MD (PCP/Family) Primary Care Physician Patient Instructions: Acute Abdomen (Belly Pain), Adult (DC), Rib Fractures in Adults Add. Discharge Instructions: Follow-up with your primary care provider as soon as possible. Return to the ER if symptoms persist or worsen and you decide to pursue workup. All discharge instructions reviewed with patient and/or family. Voiced understanding. Copy Copies To 1: AKANKSHA GAMA MD, JOSHUA T MD Jan 31, 2018 03:51
[2018-01-31 03:57] VITALS: BP 132/73
[2018-02-01] MEDS ORDERED: ONDA4TAB8 SL (05:25)
== END 2018-01-31 03:56 | disposition home or self-care (01) ==
LOC: EDUNIT# 03:06 → ER 03:08
DX: S22.31XD Fracture of one rib, right side, subsequent encounter for fracture with routine healing (principal); R10.9 Unspecified abdominal pain; F90.9 Attention-deficit hyperactivity disorder, unspecified type; F41.9 Anxiety disorder, unspecified; F32.9 Major depressive disorder, single episode, unspecified; J44.9 Chronic obstructive pulmonary disease, unspecified; Z91.14 Patient's other noncompliance with medication regimen; Z87.891 Personal history of nicotine dependence; Z96.641 Presence of right artificial hip joint; Z87.19 Personal history of other diseases of the digestive system; X58.XXXD Exposure to other specified factors, subsequent encounter

== ENCOUNTER 2018-02-01 03:44 | Emergency (ER) | payer MEDICARE ==
[~2018-02-01] VITALS: Ht 170.2 cm; Wt 59.0 kg
[2018-02-01] MEDS ORDERED: KETOROLAC 30 MG/ML VIAL IM ONE (04:00)
[2018-02-01] MEDS ORDERED: ONDANSETRON 4 MG (ZOFRAN) ORAL DISSOLVE TAB SL ONE (04:00)
--- NOTE | 2018-02-01 04:12 | ED General ---
General Chief Complaint: General Problems/Pain Stated Complaint: PAIN Source of Information: Patient Exam Limitations: No Limitations History of Present Illness Date Seen by Provider: Feb 01, 2018 Time Seen by Provider: 03:46 Initial Comments This 67-year-old man presents to the emergency room via EMS with complaints of right-sided chest wall and right flank pain. He presented with the same symptoms last night and refused a blood draw or IV start. This is patient's fifth visit since January 24. He left AGAINST MEDICAL ADVICE during one of those visits. He has had multiple imaging studies performed and has been diagnosed with duodenitis and right rib fractures secondary to a recent fall. Patient was discharged yesterday after receiving one Percocet as he did not want any workup performed. Review of patient's chart notes that he filled methadone 300 tablets on January 06. He also filled a hydrocodone prescription for 10 tablets on January 25. Patient changes his story frequently regarding what has happened to these medications. At times he has stated he never got them. At other times he says he's out. And yet at other times he states they are at home but he hasn't been taking them. During his visit yesterday he stated he had not been taking the Bactrim and Flagyl prescribed by Juan F Torres, but today he presents with those prescriptions. Patient initially stated he was here specifically for treatment of his pain and he had no other complaints. He later then stated he was also vomiting. Vital signs have been normal during the last 2 visits. He is afebrile. He has exhibited no vomiting in the emergency room during either visit. Nursing staff comments that on 2 separate occasions this patient has accused hospital staff of misplacing or stealing his medications that he brought with him to the ER. Allergies and Home Medications Allergies Coded Allergies: NKANo Known Allergies (Unverified Allergy, Mild, 02/21/09) Home Medications Alendronate Sodium 70 Mg Tablet, 70 MG PO Sa, (Reported) LAST FILLED #5 05-27-17 Alprazolam 1 Mg Tablet, 1 MG PO QID PRN for ANXIETY, (Reported) Citalopram Hydrobromide 20 Mg Tablet, 20 MG PO DAILY, (Reported) Dextroamphetamine Sulfate 10 Mg Tablet, 30 MG PO DAILY, (Reported) LAST FILLED #90 17 Diphenoxylate HCl/Atropine 1 Each Tablet, 2 TAB PO TID PRN for DIARRHEA, ( Reported) Hydrocodone/Acetaminophen 1 Each Tablet, 1 EACH PO Q6H PRN for PAIN-MODERATE TO SEVERE Prescribed by: JUAN F TORRES on 01/24/18 143 Hyoscyamine Sulfate 0.125 Mg Tab.subl, 0.125 MG SL Q6H PRN for CRAMPS Prescribed by: JUAN F TORRES on 01/29/18 165 Methadone Hcl 10 Mg Tablet, 50 MG PO TID, (Reported) LAST FILLED #450 05-27-17 TAKES 5 (10MG) TABLETS Metronidazole 500 Mg Tablet, 500 MG PO TID Prescribed by: JUAN F TORRES on 01/29/181652 Pregabalin 50 Mg Capsule, 50 MG PO BID, (Reported) Sucralfate 1 Gm/10 Ml Oral.susp, 1 GM PO ACHS Prescribed by: JUAN F TORRES on 01/29/181653 Sulfamethoxazole/Trimethoprim 1 Each Tablet, 1 EACH PO BID Prescribed by: JUAN F TORRES on 01/29/181652 Patient Home Medication List Home Medication List Reviewed: Yes Constitutional: no symptoms reported EENTM: no symptoms reported Respiratory: see HPI Cardiovascular: no symptoms reported Gastrointestinal: see HPI Genitourinary: no symptoms reported Musculoskeletal: see HPI Skin: no symptoms reported Psychiatric/Neurological: See HPI Hematologic/Lymphatic: No Symptoms Reported Past Jncnxlu-Gytaib-Xxoplw Hx Patient Social History Type Used: Cigarettes Former Smoker, Quit: Jul 14, 2017 2nd Hand Smoke Exposure: Yes Recent Hopitalizations: No Immunizations Up To Date Tetanus Booster (TDap): Unknown PED Vaccines UTD: Yes Date of Influenza Vaccine: Oct 10, 2015 Seasonal Allergies Seasonal Allergies: No Surgeries History of Surgeries: Yes (Rt hip replaced 2014) Surgeries: Gallbladder, Orthopedic Respiratory History of Respiratory Disorde: Yes Respiratory Disorders: COPD Currently Using CPAP: No Currently Using BIPAP: No Cardiovascular History of Cardiac Disorders: No Neurological History of Neurological Disord: No Reproductive System Hx Reproductive Disorders: No Genitourinary History of Genitourinary Disor: Yes Genitourinary Disorders: Renal Failure Gastrointestinal History of Gastrointestinal Di: Yes Gastrointestinal Disorders: Pancreatitis Musculoskeletal History of Musculoskeletal Dis: Yes (AVASCULAR NECROSIS, HIP REPLACEMENT WITH MULTIPLE DISLOCATIONS) Musculoskeletal Disorders: Arthritis Endocrine History of Endocrine Disorders: No HEENT History of HEENT Disorders: No Loss of Vision: Denies Hearing Impairment: Denies Cancer History of Cancer: No Psychosocial History of Psychiatric Problem: Yes Behavioral Health Disorders: ADD/ADHD, Anxiety, Depression Integumentary History of Skin or Integumenta: No Blood Transfusions History of Blood Disorders: No Adverse Reaction to a Blood Tr: No Family Medical History Significant Family History: No Pertinent Family Hx Physical Exam Vital Signs Vital Signs - First Documented 02/01/18 03:46 Temp 97.4 Pulse 59 Resp 20 B/P (MAP) 135/77 (96) Pulse Ox 100 O2 Delivery Room Air Capillary Refill : General Appearance: WD/WN, Mild Distress, Thin HEENT: PERRL/EOMI, Normal ENT Inspection Respiratory: Lungs Clear, Normal Breath Sounds, No Accessory Muscle Use, No Respiratory Distress, Other (Right lateral chest wall TTP) Cardiovascular: Regular Rate, Rhythm, No Edema, No Murmur Gastrointestinal: Normal Bowel Sounds, Soft, Tenderness (Right flank) Extremity: Normal Inspection Neurologic/Psychiatric: Alert, Oriented x3, No Motor/Sensory Deficits, Normal 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, 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 Norm as Tested, Other (Mild tremor) Skin: Normal Color, Warm/Dry Patient Education: Explained Benefits Breath Sounds per Auscultation: Clear Heart Sounds per Auscultation: Regular Airway Exam: Mouth opens >2 fingers, Neck Full Range of Motion, Visulation of Uvula Sedation Adminstration Time: 2034 Re-examination Time: 2099 Progress/Results/Core Measures Suspected Sepsis SIRS Temperature: Pulse: Respiratory Rate: Blood Pressure / Mean: Results/Orders My Orders Orders - DISHA FOSTER MD Ketorolac Injection (Toradol Injection) (02/01/18 04:00) Chest 1 View, Ap/Pa Only (02/01/18 03:58) Ondansetron Oral Dissolve Tab (Zofran (02/01/18 04:00) Drug Screen Stat (Urine) (02/01/18 04:13) Ua Culture If Indicated (02/01/18 04:13) Medications Given in ED Current Medications Medications Dose Ordered Sig/Srikanth Route Start Time Stop Time Status Last Admin Dose Admin Ketorolac Tromethamine 30 mg ONCE ONCE IM 02/01/18 04:00 02/01/18 04:01 DC 02/01/18 04:02 30 MG Ondansetron HCl 8 mg ONCE ONCE SL 02/01/18 04:00 02/01/18 04:01 DC 02/01/18 04:02 8 MG Vital Signs/I&O Vital Sign - Last 12Hours 02/01/18 03:46 Temp 97.4 Pulse 59 Resp 20 B/P (MAP) 135/77 (96) Pulse Ox 100 O2 Delivery Room Air Capillary Refill : Progress Note : Time: 05:21 Progress Note Patient was seen and evaluated. Chart was reviewed. Vital signs were normal. Chest x-ray revealed no acute abnormalities. Patient could not or would not produce a urine specimen. He was treated with Zofran for nausea and Toradol for pain. Narcotics were not provided as he is unable to give a clear account of what has happened to the large quantity of methadone he received less than a month ago and the hydrocodone he filled a few days ago. Diagnostic Imaging Diagonstic Imaging: Xray Plain Films/CT/US/NM/MRI: chest Comments Chest x-ray viewed by me. Report not yet available. No acute abnormalities appreciated. Departure Impression Impression: Primary Impression: Right rib fracture Qualified Codes: S22.41XD - Multiple fractures of ribs, right side, subsequent encounter for fracture with routine healing Additional Impression: Right flank pain Disposition: 01 HOME, SELF-CARE Condition: Improved Departure-Patient Inst. Decision time for Depature: 05:22 Referrals: AKANKSHA GAMA MD (PCP/Family) Primary Care Physician Patient Instructions: RIB FRACTURE Copy Copies To 1: AKANKSHA GAMA MD, JOSHUA T MD Feb 01, 2018 04:12
[2018-02-01] MEDS ORDERED: ONDA4TAB8 SL (05:25)
[2018-02-01 05:26] VITALS: BP 131/72
--- NOTE | 2018-02-01 07:39 | Diagnostic Imaging Report ---
INDICATION: Left rib pain EXAMINATION: Chest 02/01/2018 COMPARISON: 07/18/2017 FINDINGS: Diffuse increased densities throughout the left visualized humerus stable from recent imaging, likely a chronic benign process. Densities adjacent to the left shoulder joint chronic as well likely loose body. The lungs demonstrate chronic findings in the right chest. No superimposed acute infiltrates appreciated. No effusions. No pneumothorax. Heart and pulmonary vasculature are stable. IMPRESSION: 1. Chronic changes throughout the chest stable from previous with no superimposed acute abnormality appreciated. 2. Nonspecific but chronic appearing changes in the left shoulder and humerus. Dictated by: Dictated on workstation # [id number]
== END 2018-02-01 05:26 | disposition home or self-care (01) ==
LOC: EDUNIT# 03:44 → ER 03:46
DX: R10.9 Unspecified abdominal pain (principal); S22.41XD Multiple fractures of ribs, right side, subsequent encounter for fracture with routine healing; J44.9 Chronic obstructive pulmonary disease, unspecified; F90.9 Attention-deficit hyperactivity disorder, unspecified type; F41.9 Anxiety disorder, unspecified; F32.9 Major depressive disorder, single episode, unspecified; Z87.891 Personal history of nicotine dependence; Z96.641 Presence of right artificial hip joint; Z87.19 Personal history of other diseases of the digestive system; X58.XXXD Exposure to other specified factors, subsequent encounter
CPT/HCPCS: 71045; 96372